=== PATIENT | female | born 1970 | race Caucasian/White ===

== ENCOUNTER → 2018-04-26 | Outpatient (CLI) | payer BC ==
[2018-04-26 17:26] LABS: BASOPHILS ABSOLUTE AUTO 0.05 K/mm3 (0.00-0.23); BASOPHILS PERCENT AUTO 0 % (0-2); EOSINOPHILS ABSOLUTE AUTO 0.23 K/mm3 (0.00-0.68); EOSINOPHILS PERCENT AUTO 2 % (0-6); Hematocrit 41.4 % (33.0-51.0); Hemoglobin 13.8 g/dL (11.5-16.0); IMMATURE GRAN ABSOLUTE AUTO 0.05 K/mm3 (0.00-0.10); IMMATURE GRAN PERCENT AUTO 0 % (0-1); LYMPHOCYTES ABSOLUTE AUTO 2.25 K/mm3 (0.84-5.20); LYMPHOCYTES PERCENT AUTO 17 % (21-46); MONOCYTES ABSOLUTE AUTO 1.06 K/mm3 (0.16-1.47); MONOCYTES PERCENT AUTO 8 % (4-13); Mean Corpuscular HGB 31.3 pg (26.0-34.0); Mean Corpuscular HGB Conc 33.3 g/dL (31.5-36.5); Mean Corpuscular Volume 94 fL (80-100); Mean Platelet Volume 10.1 fL (9.1-12.4); NEUTROPHILS ABSOLUTE AUTO 9.87 K/mm3 (1.96-9.15); NEUTROPHILS PERCENT AUTO 73 % (41-73); Platelet Count 411 K/mm3 (150-400); RDW Coefficient Variation 12.5 % (11.7-14.2); RDW Standard Deviation 43.5 fL (35.1-46.3); Red Blood Cell Count 4.41 M/mm3 (3.80-5.20); White Blood Cell Count 13.51 K/mm3 (4.00-11.30)
[2018-04-26 17:46] LABS: Alanine Aminotransfer (ALT/SGP 38 U/L (12-78); Albumin, Blood 3.6 g/dL (3.4-5.0); Albumin/Globulin Ratio 0.8 (0.8-1.8); Alk Phos 91 U/L (50-136); Anion Gap 8 mmol/L (6-16); Aspartate Aminotrans (AST/SGOT 25 U/L (12-37); Bilirubin, Total 0.6 mg/dL (0.1-1.0); Blood Urea Nitrogen 16 mg/dL (8-24); Bun/Creatinine Ratio 22.2 (12.0-20.0); CO2, Blood 30 mmol/L (21-32); Calcium, Blood 9.4 mg/dL (8.5-10.1); Chloride, Blood 99 mmol/L (98-108); Creatinine, Blood 0.72 mg/dL (0.40-1.00); Globulin, Blood 4.8 g/dL (2.2-4.0); Glomerular Filtration Rate >60 (60-); Glucose, Blood 107 mg/dL (70-99); Potassium, Blood 3.1 mmol/L (3.5-5.5); Sodium, Blood 137 mmol/L (136-145); Total Protein, Blood 8.4 g/dL (6.4-8.2); Uric Acid, Blood 7.4 mg/dL (2.6-6.0)
== END ==
LOC: LAB SHORT 16:55 → LAB 16:55
PROVIDERS: Family Medicine
DX: L53.9 Erythematous condition, unspecified (principal); R50.9 Fever, unspecified; R22.42 Localized swelling, mass and lump, left lower limb
CPT/HCPCS: 80053; 84550; 85025

== ENCOUNTER → 2018-09-19 | Outpatient (CLI) | payer BC | END | disposition home or self-care (01) | LOC: PLD 10:50 → LAB SHORT 10:50 | DX: D48.5 Neoplasm of uncertain behavior of skin (principal) | CPT/HCPCS: 88304 ==

== ENCOUNTER 2020-10-22 10:20 | Inpatient (IN) | payer BC ==
[~2020-10-22] VITALS: Ht 160 cm; Wt 84.1 kg
[2020-10-22] MEDS ORDERED: EUTHYROX50 MCG PO (10:35)
[2020-10-22] MEDS ORDERED: AMLO5 PO (10:35)
[2020-10-22] MEDS ORDERED: LOSA50 PO (10:36)
[2020-10-22 10:55] LABS: BASOPHILS ABSOLUTE AUTO 0.02 K/mm3 (0.00-0.23); BASOPHILS PERCENT AUTO 0 % (0-2); EOSINOPHILS PERCENT AUTO 0 % (0-6); Hematocrit 42.2 % (33.0-51.0); Hemoglobin 14.3 g/dL (11.5-16.0); IMMATURE GRAN PERCENT AUTO 1 % (0-1); LYMPHOCYTES PERCENT AUTO 12 % (21-46); MONOCYTES ABSOLUTE AUTO 1.02 K/mm3 (0.16-1.47); MONOCYTES PERCENT AUTO 6 % (4-13); Mean Corpuscular HGB 31.8 pg (26.0-34.0); Mean Corpuscular HGB Conc 33.9 g/dL (31.5-36.5); Mean Corpuscular Volume 94 fL (80-100); Mean Platelet Volume 10.2 fL (9.1-12.4); NEUTROPHILS ABSOLUTE AUTO 12.88 K/mm3 (1.96-9.15); NEUTROPHILS PERCENT AUTO 81 % (41-73); Platelet Count 378 K/mm3 (150-400); RDW Standard Deviation 44.8 fL (35.1-46.3); White Blood Cell Count 15.92 K/mm3 (4.00-11.30)
[2020-10-22 11:14] LABS: Alanine Aminotransfer (ALT/SGP 121 U/L (12-78); Albumin, Blood 3.4 g/dL (3.4-5.0); Albumin/Globulin Ratio 0.7 (0.8-1.8); Alk Phos 69 U/L (50-136); Anion Gap 9 mmol/L (6-16); Aspartate Aminotrans (AST/SGOT 85 U/L (12-37); Bilirubin, Total 0.4 mg/dL (0.1-1.0); Blood Urea Nitrogen 39 mg/dL (8-24); Bun/Creatinine Ratio 40.4 (12.0-20.0); CO2, Blood 21 mmol/L (21-32); Calcium, Blood 8.7 mg/dL (8.5-10.1); Chloride, Blood 108 mmol/L (98-108); Creatinine, Blood 0.97 mg/dL (0.40-1.00); Ferritin, Serum 594 ng/mL (8-252); Globulin, Blood 4.8 g/dL (2.2-4.0); Glomerular Filtration Rate >60 (60-); Glucose, Blood 100 mg/dL (70-99); Lactate Dehydrogenase (Ld),Bld 588 U/L (100-240); Potassium, Blood 3.8 mmol/L (3.5-5.5); Sodium, Blood 138 mmol/L (136-145); Total Protein, Blood 8.2 g/dL (6.4-8.2)
--- NOTE | 2020-10-22 16:55 | NUR ---
PT ARRIVED TO ROOM 313-1 VIA GURNEY, 15L NRB IN PLACE, PT STOOD AND TRANSFERRED TO BED, ORIENTED TO ROOM AND CALL SYSTEM. DENIES PAIN, REPORTS SOB, CALLED FOR CONTINUOUS BIOX MONITORING. CALL BLANCHARD IN REACH AND BED IN LOWEST POSTION
--- NOTE | 2020-10-22 17:11 | NUR ---
PER BIOX PT SATS ARE AT 76%, PT ENCOURAGED TO PRONE, SATS TOUCHING INTO LOW 80'S AND RETURNING TO 70'S. PER RESP THERAPIST, LAW, 10L NC PLACED WITH NRB FOR A TOTAL OF 25 LITERS, PT SATS 92%. WAITING FOR RESP THERAPIST TO COME TO ROOM AND ASSESS PT.
--- NOTE | 2020-10-22 19:15 | NUR ---
ASSUMED CARE RECEIVED REPORT FROM ELOY FIELDS. PT RESTING, IN NAD. AWAITING AIRVO. NO ACUTE NEEDS ASSESSED AT THIS TIME. O2 SATS >90%. WCTM.
[2020-10-23 05:45] LABS: BASOPHILS ABSOLUTE AUTO 0.02 K/mm3 (0.00-0.23); BASOPHILS PERCENT AUTO 0 % (0-2); EOSINOPHILS PERCENT AUTO 0 % (0-6); Hematocrit 42.9 % (33.0-51.0); Hemoglobin 14.4 g/dL (11.5-16.0); IMMATURE GRAN ABSOLUTE AUTO 0.12 K/mm3 (0.00-0.10); IMMATURE GRAN PERCENT AUTO 1 % (0-1); LYMPHOCYTES ABSOLUTE AUTO 1.74 K/mm3 (0.84-5.20); LYMPHOCYTES PERCENT AUTO 13 % (21-46); MONOCYTES ABSOLUTE AUTO 1.12 K/mm3 (0.16-1.47); MONOCYTES PERCENT AUTO 8 % (4-13); Mean Corpuscular HGB 31.8 pg (26.0-34.0); Mean Corpuscular HGB Conc 33.6 g/dL (31.5-36.5); Mean Corpuscular Volume 95 fL (80-100); Mean Platelet Volume 9.8 fL (9.1-12.4); NEUTROPHILS ABSOLUTE AUTO 10.44 K/mm3 (1.96-9.15); NEUTROPHILS PERCENT AUTO 78 % (41-73); Platelet Count 396 K/mm3 (150-400); RDW Coefficient Variation 12.9 % (11.7-14.2); RDW Standard Deviation 45.1 fL (35.1-46.3); Red Blood Cell Count 4.53 M/mm3 (3.80-5.20); White Blood Cell Count 13.44 K/mm3 (4.00-11.30)
[2020-10-23 06:14] LABS: Alanine Aminotransfer (ALT/SGP 103 U/L (12-78); Albumin, Blood 3.2 g/dL (3.4-5.0); Albumin/Globulin Ratio 0.6 (0.8-1.8); Alk Phos 74 U/L (50-136); Anion Gap 6 mmol/L (6-16); Aspartate Aminotrans (AST/SGOT 68 U/L (12-37); Bilirubin, Total 0.4 mg/dL (0.1-1.0); Blood Urea Nitrogen 35 mg/dL (8-24); Bun/Creatinine Ratio 44.1 (12.0-20.0); CO2, Blood 24 mmol/L (21-32); Calcium, Blood 8.7 mg/dL (8.5-10.1); Chloride, Blood 110 mmol/L (98-108); Creatinine, Blood 0.79 mg/dL (0.40-1.00); Glomerular Filtration Rate >60 (60-); Glucose, Blood 102 mg/dL (70-99); Potassium, Blood 4.1 mmol/L (3.5-5.5); Sodium, Blood 140 mmol/L (136-145); Total Protein, Blood 8.2 g/dL (6.4-8.2)
--- NOTE | 2020-10-23 07:00 | NUR ---
SHIFT SUMMARY PT RESTING, IN NAD. VS REVIEWED,WNL. NO ACUTE CONCERNS TO REPORT OVERNIGHT, O2 SATS >92% ON AIRVO, 55L/ 94% FIO2. DE-SATS TO MID 80'S WITH ACTIVITY BUT RECOVERS SOON AFTER. ENCOURAGED TO LIE ON SIDE OR PRONE, PT DEMONSTRATED UNDERSTANDING, TOLERATED WELL. DENIES PAIN. APPEARED TO SLEEP WELL T/O NIGHT. NO ACUTE NEEDS ASSESSED. CALL LIGHT, POSSESSIONS IN REACH, BED IN LOW AND LOCKED POSITION. REPORT GIVEN TO ELOY TORO.
[2020-10-23 10:50] LABS: PCO2 Arterial 28.3 mmHg (35-45); PO2 Arterial 46.5 mmHg (80-100); pH Blood Arterial 7.47 (7.35-7.45)
--- NOTE | 2020-10-23 15:17 | NUR ---
PCU TRANSFER THIS RN GAVE REPORT TO ELOY SPICER ON PCU. PT TRANSFERRED WITH 15 L O2 VIA NC AND NONREBREATHER MASK WITH SATS 82%. PT PUT BACK ON AIRVO IN PCU. PT TRANSFERRED TO PCU BY THIS RN AND HELPER. PT IS IN ROOM, SATS CURRENTLY 82% WITH AIRVO TRANSFER IN PROGRESS.
--- NOTE | 2020-10-23 16:37 | NUR ---
CARE ASSUMPTION/ARRIVAL TO PCU PATIENT ARRIVED TO PCU AT 1445 BY BED FROM MEDICAL FLOOR. PATIENT TRANSFERED BY A SLIDE SHEET TO THE PCU BED. VSS. PATIENT PLACED ON BIPAP 14/8 90% AND REPOSITIONED TO PRONE. PATIENT ORIENTATED TO ROOM. PATIENT A/O X4. PATIENT REPORTS NO PAIN, BUT STATES SHE IS CLAUSTROPHOBIC WITH THE BIPAP. THIS RN GOT AHOLD OF THE MD AND NOTIFED MD OF THIS. CALL LIGHT WITHIN REACH. WILL CONTINUE TO MONITOR AND PROVIDE CARE.
[2020-10-23 17:42] LABS: Source, Urine Catheter
[2020-10-23 17:55] LABS: Bilirubin, Urine Neg (Neg); Blood, Urine Neg (Neg); Color, Urine Yellow (P-Yellow); Glucose Qualitative, Urine Neg (Neg); Ketones, Urine Neg (Neg); Leukocyte Esterase, Urine 1+ (Neg); Nitrite, Urine Neg (Neg); Protein, Urine 2+ (Neg); Specific Gravity, Urine 1.015 (1.003-1.022); Urobilinogen, Urine NORM (Normal); pH, Urine 6.5 (5.0-8.0)
--- NOTE | 2020-10-23 18:04 | NUR ---
SHIFT SUMMARY PATIENT IS A/O X4. VSS. SPO2 >90% ON BIPAP 14/8 90% AND LAYING ON RIGHT SIDE. TELE SR 60S. MONIQUE CATH IN PLACE DRAINING WITH GRAVITY, CLEAR YELLOW. PATIENT, PER EMAR ORDER RECEIVED ATIVAN, THIS PROVIDED RELIEF OF ANXIETY. PATIENT DID NOT WANT TO EAT DINNER. NO ACUTE CHANGES. CALL LIGHT WITHIN REACH. WILL CONTINUE TO MONITOR AND PROVIDE CARE UNTIL HAND OFF.
[2020-10-23 18:05] LABS: Appearance, Urine Hazy (Clear)
[2020-10-23 18:08] LABS: Red Blood Cells, Urine 0-2 /hpf (0-2)
[2020-10-23 18:09] LABS: Bacteria Mod /hpf; Squamous Epithelial Cells Many /hpf (Few)
--- NOTE | 2020-10-24 05:58 | NUR ---
SHIFT SUMMARY ASSUMED CARE OF PT AT 1900. PT IS A/OX4. HEART SOUNDS REGULAR, LUNG SOUNDS HAVE CRACKLES T/O. PT REMAINED ON THE CPAP T/O THE NIGHT. PT REMAINED AT 90% FIO2 WITH SATURATIONS IN THE LOW 90%. PT DID NOT PRONE WELL BUT WOULD LAY ON HER SIDE. PT MONIQUE WAS DRAINING CLEAR YELLOW URINE. PT TOLERATED ORAL CARE BREAKS. CALL LIGHT IN REACH, BED IN LOWEST POSTION.
--- NOTE | 2020-10-24 09:45 | NUR ---
CARE ASSUMPTION PATIENT ALERT AND ORIENTATED X4. PATIENT VSS. TELE SR 70S. BIPAP 14/8 AT 90% SPO2 AT 90. PATIENT WAS PRONING TO INCREASE OXYGEN SATURATION BECAUSE PATIENT DROPPED INTO 80S. PATIENT PRONING AND INCREASED O2 TO 90-92%. PATIENT REPOSITIONED ON RIGHT SIDE. PATIENT LUNG SOUNDS HAS BILATERAL WHEEZES. PATIENT ORAL MEDS HELD DUE TO PATIENT O2 SATS DROPPING INTO LOW 80S. PATIENT RECEIVED IV MORNING MEDS. CALL LIGHT WITHIN REACH. WILL CONTINUE TO MONITOR AND PROVIDE CARE.
--- NOTE | 2020-10-24 12:00 | NUR ---
INITIAL ASSESSMENT PATIENT ARRIVED FROM PCU AT 1135. PATIENT INTUBATED AND ON SEDATION. PATIENT RESPONDING TO PAINFUL STIMULI. TEMP OF 100.9 DEGREES FAHRENHEIT. LUNGS DIMINISHED AND COARSE THROUGHOUT. PATIENT ON ACVC+ AT 14, TI 0.8, PEEP 14 AND 100% FIO2. ETT 8.0 AND 24 AT TEETH. SMALL AMOUNTS OF BLOODY SECRETIONS NOTED FROM ETT. PATIENT IN ST, HR 150S TO 160S. SBP IN THE 90S. OG PLACED; CLAMPED. MONIQUE DRAINING DARK YELLOW COLORED URINE. SKIN APPEARS WNL.
--- NOTE | 2020-10-24 12:49 | NUR ---
100 MG SUCCINYLCHOLINE GIVEN BY OSITO LYONS AT 1235.
[2020-10-24 13:32] LABS: BASOPHILS ABSOLUTE AUTO 0.05 K/mm3 (0.00-0.23); BASOPHILS PERCENT AUTO 0 % (0-2); EOSINOPHILS ABSOLUTE AUTO 0.03 K/mm3 (0.00-0.68); EOSINOPHILS PERCENT AUTO 0 % (0-6); IMMATURE GRAN PERCENT AUTO 2 % (0-1); LYMPHOCYTES ABSOLUTE AUTO 1.56 K/mm3 (0.84-5.20); LYMPHOCYTES PERCENT AUTO 8 % (21-46); MONOCYTES ABSOLUTE AUTO 1.41 K/mm3 (0.16-1.47); MONOCYTES PERCENT AUTO 7 % (4-13); Mean Corpuscular HGB Conc 33.3 g/dL (31.5-36.5); Mean Corpuscular Volume 96 fL (80-100); Mean Platelet Volume 10.3 fL (9.1-12.4); NEUTROPHILS PERCENT AUTO 84 % (41-73); Platelet Count 464 K/mm3 (150-400); RDW Standard Deviation 46.5 fL (35.1-46.3); Red Blood Cell Count 4.38 M/mm3 (3.80-5.20); White Blood Cell Count 20.35 K/mm3 (4.00-11.30)
[2020-10-24 13:50] LABS: Albumin/Globulin Ratio 0.7 (0.8-1.8); Bilirubin, Total 0.8 mg/dL (0.1-1.0); Bun/Creatinine Ratio 36.6 (12.0-20.0); Calcium, Blood 8.1 mg/dL (8.5-10.1); Creatinine, Blood 0.98 mg/dL (0.40-1.00); Globulin, Blood 4.3 g/dL (2.2-4.0); Potassium, Blood 4.2 mmol/L (3.5-5.5); Total Protein, Blood 7.3 g/dL (6.4-8.2)
[2020-10-24 15:17] LABS: PCO2 Arterial 34.3 mmHg (35-45); PO2 Arterial 86.2 mmHg (80-100); pH Blood Arterial 7.34 (7.35-7.45)
--- NOTE | 2020-10-24 15:50 | NUR ---
1131: PATIENT RECEIVED 100 MG SUCCINYL CHOLINE. PATIENT INTUBATED AT 1133. PATIENT RECEIVED 50 MCG PROPOFOL AT 1138 EN ROUTE FROM PCU TO ICU 07. PATIENT RECEIVED ANOTHER 50 MCG OF PROPOFOL AT 1142 ONCE IN ICU.
--- NOTE | 2020-10-24 16:19 | NUR ---
PATIENT'S GOLD BRACELET SENT HOME WITH PATIENT'S , KIM.
--- NOTE | 2020-10-24 18:50 | NUR ---
SHIFT SUMMARY PATIENT ARRIVED TO UNIT AROUND 1130. PATIENT INTUBATED RIGHT BEFORE COMING TO ICU. PATIENT REMAINS INTUBATED AND SEDATED. VENT SETTINGS HAVE BEEN ABLE TO BE DECREASED TO AC 14, TV 350, PEEP 10 AND 60% FIO2. LUNGS DIM AND COARSE UPON ARRIVAL. LUNGS NOW MORE CLEAR TO AUSCULTATION. ETT 8.0, 24 AT THE TEETH. SMALL AMOUNTS OF BLOODY SECRETIONS NOTED FROM ETT. CHEST TUBE PLACED TO R CHEST WALL TO WALL SUCTION AT -20 CM H20. NO CREPITUS NOTED. BUBBLING AND FLUCTUATING NOTED. OCCASIONAL AIR LEAK NOTED. PATIENT REMAINED SR TO ST, HR 70S TO 160S. SBP 90S TO 160S. OG REMAINS CLAMPED. NO BM THIS SHIFT. PATIENT REMAINED NPO. MONIQUE DRAINED ADEQUATE AMOUNT OF DARK YELLOW COLORED URINE. PATIENT REPOSITIONED Q2H. PRECEDEX AT 1.4 MCG/ KG/ HOUR, PROPOFOL AT 60 MCG/ KG/ MINUTE, LR AT 125 MLS/ HOUR. REPORT WILL BE GIVEN TO ONCOMING WOOL CARDER NURSE SHORTLY.
--- NOTE | 2020-10-24 22:01 | NUR ---
UPDATE: PT'S MOTHER, SANNA, UPDATED ON PT'S IMPROVING VENT REQUIREMENTS AFTER BEING TRANSFERRED TO ICU. PEEP NOW 10 & FiO2 55%. PT TOLERATING WELL @ 95%, TV 360s. FAMILY SEEMED TO BE IN GOOD SPIRITS & EXPRESSED THEIR GRATITUDE TOWARDS STAFF. ENCOURAGED TO CALL FOR ANY QUESTIONS OR CONCERNS.
[2020-10-25 03:40] LABS: Hematocrit 41.1 % (33.0-51.0); Mean Corpuscular HGB 31.7 pg (26.0-34.0); Mean Corpuscular HGB Conc 34.1 g/dL (31.5-36.5); Mean Corpuscular Volume 93 fL (80-100); Platelet Count 441 K/mm3 (150-400); RDW Coefficient Variation 12.7 % (11.7-14.2); RDW Standard Deviation 43.8 fL (35.1-46.3); Red Blood Cell Count 4.42 M/mm3 (3.80-5.20); White Blood Cell Count 21.62 K/mm3 (4.00-11.30)
[2020-10-25 04:00] LABS: Alanine Aminotransfer (ALT/SGP 71 U/L (12-78); Albumin, Blood 2.7 g/dL (3.4-5.0); Albumin/Globulin Ratio 0.6 (0.8-1.8); Alk Phos 91 U/L (50-136); Anion Gap 6 mmol/L (6-16); Aspartate Aminotrans (AST/SGOT 35 U/L (12-37); Bilirubin, Total 0.7 mg/dL (0.1-1.0); Blood Urea Nitrogen 23 mg/dL (8-24); Bun/Creatinine Ratio 33.6 (12.0-20.0); CO2, Blood 21 mmol/L (21-32); Chloride, Blood 111 mmol/L (98-108); Creatinine, Blood 0.69 mg/dL (0.40-1.00); Globulin, Blood 4.6 g/dL (2.2-4.0); Glomerular Filtration Rate >60 (60-); Glucose, Blood 228 mg/dL (70-99); Sodium, Blood 138 mmol/L (136-145); Total Protein, Blood 7.3 g/dL (6.4-8.2)
[2020-10-25 04:07] LABS: BAND PERCENT MAN 1 % (0-8); BASOPHILS PERCENT MAN 0 % (0-2); EOSINOPHILS PERCENT MAN 0 % (0-6); LYMPHOCYTES ABSOLUTE MAN 0.64 K/mm3 (0.84-5.20); LYMPHOCYTES PERCENT MAN 3 % (21-46); METAMYELOCYTE ABSOLUTE MAN 0.64 K/mm3 (0.00-0.00); METAMYELOCYTE PERCENT MAN 3 % (0-0); MONOCYTES ABSOLUTE MAN 0.64 K/mm3 (0.16-1.47); MONOCYTES PERCENT MAN 3 % (4-13); MYELOCYTE ABSOLUTE MAN 0.21 K/mm3 (0.00-0.00); MYELOCYTE PERCENT MAN 1 % (0-0); NEUTROPHILS ABSOLUTE MAN 19.45 K/mm3 (1.96-9.15); SEG NEUTROPHILS PERCENT MAN 89 % (41-73); TOTAL CELLS COUNTED 100
--- NOTE | 2020-10-25 06:55 | NUR ---
SHIFT SUMMARY: PT RESTED WELL T/O THE NIGHT. VENT: AC VC 14/350, 10/50%. GTTs: PRECEDEX 1.0mcg/kg/hr, PROPOFOL 30mcg/kg/min. PT GIVEN VERY SHORT SEDATION VACATION, APPROX 8min, DURING WHICH PT BEGAN TO COUGH AGAINST ETT & SATS DEC TO 70s & PT TOOK SEVERAL MINS TO RETURN TO THE 90s. PT HAD DIFFICULTY MAINTAINING SATS >90% W/ POSITION CHANGES. ELEVATING THE TRUNK W/ FLANKED PILLOWS APPEAR TO WORK BEST FOR HER WORK OF BREATHING & SATS. NO OTHER ACUTE CHANGES. FAMILY UPDATED ON PT IMPROVEMENTS & PLAN OF CARE. WILL CONTINUE TO MONITOR UNTIL REPORT OFF TO ONCOMING RN.
--- NOTE | 2020-10-25 08:30 | NUR ---
INITIAL ASSESSMENT PATIENT INTUBATED AND SEDATED. PATIENT DOES RESPOND TO PAINFUL STIMULI. PATIENT AFEBRILE. NO SIGNS OF PAIN NOTED. PATIENT ON AC 14, TV 350, PEEP 10 AND 50% FIO2. LUNGS DIMINISHED THROUGHOUT. CHEST TUBE TO R ANTERIOR CHEST WALL. CHEST TUBE TO WALL SUCTION. BUBBLING AND FLUCTUATING NOTED. FREQUENT, BUT NOT CONSTANT, AIR LEAK NOTED. NO CREPITUS NOTED. PATIENT IN SR, HR 60S TO 80S. SBP 120S TO 150S. PATIENT NPO. OG IN PLACE; CLAMPED. MONIQUE DRAINING DARK YELLOW URINE. SKIN APPEARS WNL. PATIENT BEING REPOSITIONED Q2H. BED LOW. WILL CONTINUE TO MONITOR PATIENT FREQUENTLY THROUGHOUT SHIFT.
--- NOTE | 2020-10-25 12:30 | NUR ---
PATIENT AFEBRILE. HR 70S TO 80S. SBP 120S TO 140S. RR 20S TO 40S. PATIENT ON AC 14, TV 320, PEEP OF 8 AND 50% FIO2. PROPOFOL AT 60 MCG/ KG/ HOUR. DR. AARON STATED NOT TO PERFORM SEDATION VACATION THIS SHIFT. WILL CONTINUE TO MONITOR.
--- NOTE | 2020-10-25 13:29 | NUR ---
DR. STEIN INFORMED OF INCREASING WBCS. INFORMED THAT URINE CAME BACK POSITIVE FOR ENTEROCOCCUS. NO ORDERS RECEIVED.
--- NOTE | 2020-10-25 16:00 | NUR ---
PATIENT AFEBRILE. HR IN THE 70S. SBP IN THE 150S. RR IN THE 30S. VENTILATOR SETTINGS REMAIN THE SAME. PATIENT STARTED ON PIVOT 1.5 AT GOAL RATE OF 25 MLS/ HOUR. NO OTHER CHANGES TO NOTE ON AT THIS TIME.
--- NOTE | 2020-10-25 16:54 | NUR ---
1550: DR. AARON INFORMED THAT PATIENT SATTING IN THE LOW 80S. INFORMED THAT PATIENT HAD CUFF LEAK AND THAT HAS BEEN CORRECTED BY PRIMARY NURSE AND RT, SHAMIKA. INFORMED THAT PATIENT PLACED ON 100% FIO2 AND SATS REMAIN BELOW 90. STAT CHEST XR PERFORMED PER DR. AARON. 1607: DR. STEIN CALLED AND INFORMED OF CHEST XR. STATED HE WOULD BE IN TO UNIT IN 20 MINUTES. 1630: DR. STEIN HERE. CHEST TUBE ATTACHED BACK TO WALL SUCTION FROM WATER SEAL. PATIENT SATTING IN 90S ON FIO2 OF 60%.
--- NOTE | 2020-10-25 18:53 | NUR ---
SHIFT SUMMARY PATIENT REMAINED INTUBATED AND SEDATED. PATIENT REMAINS RESPONDING TO PAIN. PATIENT COUGHING AND DESATTING INTO 80S WITH REPOSITIONING. PATIENT HAS REMAINED AFEBRILE. NO SIGNS OF PAIN NOTED THIS SHIFT. LUNGS REMAINED DIMINISHED THROUGHOUT. VENT SETTINGS NOW AC 14, TV 320, PEEP 8 AND 60% FIO2. DR. STEIN PLACED THORA VENT TO WATER SEAL FROM WALL SUCTION THIS SHIFT. PATIENT TOLERATED FOR SOME TIME BUT THEN DESATTED TO THE LOW 80S. CUFF LEAK FIXED BUT SATS REMAINED IN 80S. CHEST XR OBTAINED, PATIENT INCREASED TO 100% FIO2 AND DR. STEIN ENDED UP PLACING CHEST TUBE BACK TO WALL SUCTION. PATIENT SATS INCREASED BACK INTO THE 90S AND PATIENT ABLE TO BE DECREASED BACK DOWN TO 60% FIO2. PATIENT REMAINED IN SR, HR 60S TO 90S. SBP 1-TEENS TO 160S. PIVOT TF STARTED AT GOAL RATE OF 25 MLS/ HOUR THIS SHIFT. REGISTRY NP CONSULT ORDERED. NO BM THIS SHIFT. MONIQUE DRAINED 675 MLS OF DARK YELLOW COLORED URINE. PATIENT REPOSITIONED Q2H. PRECEDEX AT 1.0 MCG/ KG/ HOUR, PROPOFOL AT 60 MCG/ KG/ MINUTE AND LR AT 125 MLS/ HOUR. LSS INSULIN STARTED THIS SHIFT. BLOOD SUGARS 178 TO 249. REPORT WILL BE GIVEN TO ASSUMING AUTOMOBILE RENTAL REPRESENTATIVE NURSE SHORTLY.
--- NOTE | 2020-10-25 20:00 | NUR ---
ASSUMING PT CARE: PT INTUBATED & SEDATED. VENT: AC VC 14/320, 8/50%. GTTs: PRECEDEX 1.0mcg/kg/hr, PROPROFOL 60mcg/kg/min. BITES ETT, +GAG, +COUGH, +SWALLOW W/ ORAL CARE. UNABLE TO FOLLOW COMMANDS. SPO2>92%. URISEAL TO R UPPER CHEST, +BUBBLES IN WATER SEAL CHAMBER, +150mmHg SUCTION. NO DRAINAGE NOTED IN CHEST TUBE. SEE SHIFT ASSESSMENT FOR FULL PT ASSESSMENT. WILL CONTINUE TO MONITOR & REPORT APPROPRIATE.
--- NOTE | 2020-10-25 23:00 | NUR ---
UPDATE: FAMILY CALL PT'S MOTHER, SANNA, CALLS & REQUESTS UPDATE. UPDATED ON PT'S INC O2 REQUIREMENTS ON THE VENT, NOW 80% FiO2. MOTHER IS VERY INQUISITIVE, ASKING WHAT EXACTLY IS ON HER eMAR & WHAT "PROTOCOL" WE ARE USING TO TREAT HER COVID PNEUMONIA & HOW WE ARE "MONITORING IT's PROGRESS". SEVERAL MINS SPENT EDUCATING FAMILY ON TYPICAL PROCESSS IN TREATING COVID PNEUMONIA, BUT FAMILY ENCOURAGED TO ADDRESS THESE QUESTIONS W/ MD IN THE AM. FAMILY ALSO REQUESTS SHE BE SENT THE LIST OF MEDS SHE IS RECEIVING SO SHE CAN COMPARE THEM TO "RESEARCH" SHE IS FOLLOWING. SHE ADDS THAT THE PT & HER RECEIVED A COURSE OF IVERMECTIN WHEN THEY WERE FIRST DX'd W/ COVID & REQUESTS SHE RECEIVE A DRUG SHE HAS READ ABOUT. AGAIN, ENCOURAGED FAMILY TO ADDRESS THESE CONCERNS W/ PROVIDER. SHE SEEMED VERY RECEPTIVE BUT VERY ANXIOUS ABOUT THE PT RECEIVING THE PROPER COURSE OF Tx.
--- NOTE | 2020-10-26 01:30 | NUR ---
UPDATE: WORSENING HYPOXIA & LOW TIDAL VOLUMES. SPO2 CONTINUES TO DECLINE, NOW LOW 80s. RR 40s. TV 220-180. FiO2 INC TO 90%, PT MEDICATED W/ PRN ATIVAN, & SAT IN HIGH FOWLERS W/ NO RESOLUTION. RT CALLED TO BEDSIDE TO ASSESS. AGRICULTURAL PRODUCE WASHER TUBE APPEARED TO BE PINCHED & CUFF LEAKING, BOTH RESOLVED. CHEST TUBE NOW DRAINING HOLMAN/RED THICK SECRETIONS. SATS INC TO 93% & RR 30s, TV RETUNED TO 320. WILL CONTINUE TO MONITOR CLOSELY FOR ANY CHANGES & REPORT APPROPRIATE.
[2020-10-26 04:13] LABS: Hematocrit 41.5 % (33.0-51.0); Hemoglobin 13.9 g/dL (11.5-16.0); Mean Corpuscular HGB 31.7 pg (26.0-34.0); Mean Corpuscular HGB Conc 33.5 g/dL (31.5-36.5); Mean Corpuscular Volume 95 fL (80-100); Mean Platelet Volume 10.4 fL (9.1-12.4); Platelet Count 465 K/mm3 (150-400); RDW Coefficient Variation 12.8 % (11.7-14.2); RDW Standard Deviation 44.6 fL (35.1-46.3); Red Blood Cell Count 4.38 M/mm3 (3.80-5.20); White Blood Cell Count 22.76 K/mm3 (4.00-11.30)
[2020-10-26 04:37] LABS: Albumin, Blood 2.3 g/dL (3.4-5.0); Anion Gap 9 mmol/L (6-16); Blood Urea Nitrogen 19 mg/dL (8-24); Bun/Creatinine Ratio 33.5 (12.0-20.0); CO2, Blood 20 mmol/L (21-32); Calcium, Blood 7.2 mg/dL (8.5-10.1); Chloride, Blood 111 mmol/L (98-108); Creatinine, Blood 0.57 mg/dL (0.40-1.00); Glomerular Filtration Rate >60 (60-); Glucose, Blood 300 mg/dL (70-99); Phosphorus, Blood 2.4 mg/dL (2.5-4.9); Potassium, Blood 3.4 mmol/L (3.5-5.5); Sodium, Blood 140 mmol/L (136-145)
[2020-10-26 06:03] LABS: BAND PERCENT MAN 13 % (0-8); BASOPHILS PERCENT MAN 0 % (0-2); EOSINOPHILS PERCENT MAN 0 % (0-6); LYMPHOCYTES ABSOLUTE MAN 1.82 K/mm3 (0.84-5.20); LYMPHOCYTES PERCENT MAN 8 % (21-46); MONOCYTES ABSOLUTE MAN 1.13 K/mm3 (0.16-1.47); MONOCYTES PERCENT MAN 5 % (4-13); MYELOCYTE ABSOLUTE MAN 0.22 K/mm3 (0.00-0.00); MYELOCYTE PERCENT MAN 1 % (0-0); NEUTROPHILS ABSOLUTE MAN 19.57 K/mm3 (1.96-9.15); SEG NEUTROPHILS PERCENT MAN 73 % (41-73); TOTAL CELLS COUNTED 100
--- NOTE | 2020-10-26 06:54 | NUR ---
SHIFT SUMMARY: PT REMAINS INTUBATED & SEDATED. VENT: AC VC 14/320, 8/90%. GTTs: PRECEDEX 1.7mcg/kg/hr, PROPOFOL 60mcg/kg/min. PT HAS BEEN DIFFICULT TO SEDATED & MAINTAIN SATS >90% T/O THE SHIFT. SEE PREVIOUS NOTATION FOR PT PROGRESSION. PT IS MARKEDLY INTOLERANT OF POSITION CHANGES WHERE HER TRUNK IS NOT ELEVATED ON PILLOWS, SATS DEC TO THE LOW 80s, TV DEC, & RR INC TO THE 40s. IN HIGH FOWLERS W/ TRUNK ELEVATED, FiO2 WAS ABLE TO BE TITRATED DOWN FROM 100% TO 90% W/ SPO2 MAINTAINING >90%. ETT CUFF CONTINUES TO LEAK, RT & PROVIDER AWARE. NO BM THIS SHIFT. 900 URINE OUTPUT. WILL CONTINUE TO MONITOR UNTIL REPORT OFF TO ONCOMING RN.
--- NOTE | 2020-10-26 11:38 | NUR ---
ASSUMED CARE OF PT, REPORT RCV'D FROM ELOY SANTIAGO. PT INTUBATED AND SEDATED. VENT SETTINGS 14/320/8/90%. PROPOFOL @ 70 MCG/KG/MIN, PRECEDEX @ 1.4 MCG/KG/HR, FENTANYL GTT STARTED 25 MCG/HR. PT HAS RIGHT UPPER CHEST TUBE, TO SUCTION AT START OF SHIFT, DR. VELAZCO CHANGED TO WATERSEAL AT THIS TIME.
--- NOTE | 2020-10-26 15:44 | NUR ---
LEVOPHED BPS MAINTAINED SOFT WITH MAP [address] VELAZCO. ORDER FOR PICC AND LEVOPHED. ORDER OK TO START PERIPHERAL LEVOPHED. LEVO INITIATED IN LEFT AC, GOOD BLOOD RETURN, BP CUFF DISTAL TO IV. PICC BEING PLACED, WILL PLACE ON PICC ONCE COMPLETED.
--- NOTE | 2020-10-26 18:48 | NUR ---
SHIFT SUMMARY PT INTUBATED, SEDATED AND PARALYZED. VENT SETTINGS 14/320/10/80%. NIMBEX @ 2MCG/KG/MIN 2-3/4 TOF, PROPOFOL @ 40 MCG/KG/MIN, FENTANYL GTT 100 MCG/HR. CHEST TUBE REMAINS TO SUCTION. PT'S MOTHER UPDATED BY NURSE AND BY DR. VELAZCO.
[2020-10-26 21:11] LABS: Base Excess Venous -3.9 mmol/L; Bicarbonate Venous 19.7 mmol/L (24.0-30.0); PCO2 Venous 68.9 mmHg (38-42); pH Blood Venous 7.16 (7.34-7.37)
--- NOTE | 2020-10-26 21:15 | NUR ---
UPDATE: CRITICAL pH & VENT CHANGES RT CONCERNED W/ PT'S MINUTE VENTILATION. DISCUSSED W/ VELAZCO & ORDERS PLACED FOR STAT VBG. RESULTED W/ CRITICAL pH OF 7.16. VELAZCO UPDATED. ORDERS GIVEN TO INC RESPIRATORY RATE FROM 14 to 18. RT INFORMED & TO CHANGE SETTINGS SHORTLY.
--- NOTE | 2020-10-26 22:15 | NUR ---
UPDATE: FAMILY PHONE CALL. PT's MOTHER, SANNA, CALLS FOR AN UPDATE ON PT STATUS. FAMILY UPDATED ON VENT CHANGES & NEW GTTs INCLUDING PARALYTICS & PRESSORS. FAMILY WAS VERY INQUISITIVE REGARDING ECMO & WHETHER PT SHOULD BE TRANSFERRED TO A HOSPITAL THAT OFFERS ECMO SO THE PT WILL BE ABLE TO RECEIVE ECMO SOON SHE NEEDS IT. FAMILY INFORMED OF TRANSFER PROCESS & THAT PT IS NOT NEEDING ECMO @ THIS TIME PER [facility] & THEREFOR IT WOULD NOT BE A TRANSFER D/T HIGHER LEVEL OF CARE & THIS WOULD COMPLICATE INSURANCE COVERAGE. ATTEMPTED TO CONSOLE FAMILY THAT PT IS RECEIVING THE SAME Tx SHE WOULD ELSEWHERE & IF HER NEEDS CHANGED, WE WOULD INFORM THEM IMMEDIATELY. FURTHER QUESTIONS DEFERRED TO [facility] IN THE AM FAMILY HAD MANY MORE QUESTIONS.
[2020-10-27 03:44] LABS: BASOPHILS ABSOLUTE AUTO 0.15 K/mm3 (0.00-0.23); BASOPHILS PERCENT AUTO 1 % (0-2); EOSINOPHILS ABSOLUTE AUTO 0.01 K/mm3 (0.00-0.68); EOSINOPHILS PERCENT AUTO 0 % (0-6); Hematocrit 42.6 % (33.0-51.0); IMMATURE GRAN ABSOLUTE AUTO 2.16 K/mm3 (0.00-0.10); IMMATURE GRAN PERCENT AUTO 9 % (0-1); LYMPHOCYTES ABSOLUTE AUTO 0.85 K/mm3 (0.84-5.20); LYMPHOCYTES PERCENT AUTO 4 % (21-46); MONOCYTES ABSOLUTE AUTO 1.09 K/mm3 (0.16-1.47); MONOCYTES PERCENT AUTO 5 % (4-13); Mean Corpuscular HGB 31.9 pg (26.0-34.0); Mean Corpuscular HGB Conc 32.9 g/dL (31.5-36.5); Mean Corpuscular Volume 97 fL (80-100); Mean Platelet Volume 10.4 fL (9.1-12.4); NEUTROPHILS ABSOLUTE AUTO 19.36 K/mm3 (1.96-9.15); NEUTROPHILS PERCENT AUTO 82 % (41-73); Platelet Count 466 K/mm3 (150-400); RDW Coefficient Variation 13.2 % (11.7-14.2); RDW Standard Deviation 47.4 fL (35.1-46.3); Red Blood Cell Count 4.39 M/mm3 (3.80-5.20); White Blood Cell Count 23.62 K/mm3 (4.00-11.30)
[2020-10-27 04:03] LABS: Albumin, Blood 2.2 g/dL (3.4-5.0); Anion Gap 6 mmol/L (6-16); Blood Urea Nitrogen 17 mg/dL (8-24); Bun/Creatinine Ratio 32.1 (12.0-20.0); CO2, Blood 26 mmol/L (21-32); Chloride, Blood 111 mmol/L (98-108); Creatinine, Blood 0.53 mg/dL (0.40-1.00); Glomerular Filtration Rate >60 (60-); Glucose, Blood 276 mg/dL (70-99); Phosphorus, Blood 2.8 mg/dL (2.5-4.9); Potassium, Blood 3.8 mmol/L (3.5-5.5); Sodium, Blood 143 mmol/L (136-145)
[2020-10-27 04:08] LABS: BAND PERCENT MAN 3 % (0-8); BASOPHILS PERCENT MAN 0 % (0-2); EOSINOPHILS PERCENT MAN 0 % (0-6); LYMPHOCYTES ABSOLUTE MAN 0.47 K/mm3 (0.84-5.20); LYMPHOCYTES PERCENT MAN 2 % (21-46); METAMYELOCYTE ABSOLUTE MAN 0.94 K/mm3 (0.00-0.00); METAMYELOCYTE PERCENT MAN 4 % (0-0); MONOCYTES PERCENT MAN 0 % (4-13); MYELOCYTE ABSOLUTE MAN 0.23 K/mm3 (0.00-0.00); MYELOCYTE PERCENT MAN 1 % (0-0); NEUTROPHILS ABSOLUTE MAN 21.96 K/mm3 (1.96-9.15); SEG NEUTROPHILS PERCENT MAN 90 % (41-73); TOTAL CELLS COUNTED 100
--- NOTE | 2020-10-27 06:46 | NUR ---
SHIFT SUMMARY: PT REMAINS INTUBATED, SEDATED, & PARALYZED. VENT: AC VC 18/330, 10/60%. GTTs: FENTANYL 100mcg/hr, PRECEDEX 1.0mcg/kg/hr, PROPOFOL 40mcg/kg/min, NIMBEX 1mcg/kg/min. BIS 32-45. ToF 1/4. CHEST TUBE REMAINS TO WALL SUCTION, NO OUTPUT THIS SHIFT. LS DIMINISHED BUT CLEAR. 1,100 DARK YELLOW URINE OUTPUT THIS SHIFT. PT DID VERY WELL T/O THE NIGHT. FiO2 DEC TO 50% FOR MOST OF THE NIGHT. NO LONGER REQUIRING PRESSORS. WILL CONTINUE TO MONITOR UNTIL REPORT OFF TO ONCOMING RN.
--- NOTE | 2020-10-27 07:30 | NUR ---
ASSUMED CARE REPORT FROM JACK LYONS AT 0700. PT INTUBATED, SEDATED, PARALYZED. VENT SETTINGS AC 14/320/10/65%. LUNGS CLEAR THROUGHOUT. SCANT SECRETIONS THROUGH ETT. URESIL TO RIGHT CHEST WALL, TO SUCTION. NO CREPITIS PALPATED. SCANT SEROUS DRAINAGE IN TUBE. PROPOFOL AND FENTANYL GTT FOR PAIN AND SEDATION. BIS 30'S. NIMBEX GTT, TO4 0/4, COMPLIANT c VENT, WILL TITRATE DOWN. NO COOUGH/GAG/SWALLOW REFLEX. ABD ROUND, SOFT, NON TENDER. BT X 4. TUBE FEEDS AT GOAL, 20 ML/HR, 50 ML RESIDUALS THIS AM. MONIQUE PATENT, DRAINING CLEAR YELLOW URINE TO GRAVITY. PICC TO E, DRESSING C/D/I. BP STABLE. NSR, RATE 60'S. WILL CONTINUE TO MONITOR.
--- NOTE | 2020-10-27 10:52 | NUR ---
REASSESSMENT/DR VELAZCO ROUNDS PLAN FOR PARALYTIC VACATION THIS SHIFT. WILL LEAVE CHEST TUBE TO SUCTION. DIURESE THIS SHIFT. VENT SETTINGS AC 14/320/10/50%.
--- NOTE | 2020-10-27 18:01 | NUR ---
SHIFT SUMMARY PT REMAINS INTUBATED AND SEDATED. VENT SETTINGS AC 14/320/10/60%. LUNGS CLEAR. CHEST TUBE REMAINS IN PLACE TO RIGHT CHEST WALL, TO SUCTION. 17 ML SEROUS FLUID OUT. NIMBEX D'C/D THIS SHIFT, PT TOLERATING VENT WELL. PROPOFOL, PRECEDEX AND FENTANYL CONTINUE. PT FOLLOWS SIMPLE COMMANDS. NODS HEAD TO QUESTIONS. TUBE FEEDS AT GOAL. MONIQUE PATENT, DRAINING TO GRAVITY. DIRUESED THIS SHIFT. BP STABLE. WILL CONTINUE TO MONITOR UNTIL REPORT TO ONCOMING NURSE.
--- NOTE | 2020-10-27 19:15 | NUR ---
ASSUMPTION OF CARE PT REMAINS INTUBATED WITH VENT SETTINGS 14/330/10/60%. PT WAKENS TO VERBAL STIMULI. SLOW TO RESPOND BUT OPENS EYES TO NAME, NODS HEAD YES/NO TO QUESTIONS. PT SQUEEZES BILAT HANDS WITH MINIMAL STRENGTH, WIGGLES TOES. PT DENIES PAIN OR DISCOMFORT. PT RECEIVING PROPOFOL 30MCG/KG/MIN, PRECEDEX 0.7MCG/KG/HR, AND FENTANYL 100MCG/HR. LEVOPHED AND NIMBEX REMAIN ON STANDBY. CHEST TUBE REMAINS IN R ANTERIOR UPPER CHEST. CONNECTED TO SUCTION WITH SEROSANGUANOUS DRAINAGE. DRESSING INTACT AND SECURE. TF INFUSING VIA OGT AT GOAL RATE. MONIQUE IN PLACE AND DRAINING PALE YELLOW URINE. SEE SHIFT ASSESSMENT.
[2020-10-28 03:34] LABS: BASOPHILS ABSOLUTE AUTO 0.09 K/mm3 (0.00-0.23); BASOPHILS PERCENT AUTO 1 % (0-2); EOSINOPHILS ABSOLUTE AUTO 0.09 K/mm3 (0.00-0.68); EOSINOPHILS PERCENT AUTO 1 % (0-6); Hematocrit 39.1 % (33.0-51.0); Hemoglobin 13.2 g/dL (11.5-16.0); IMMATURE GRAN ABSOLUTE AUTO 1.53 K/mm3 (0.00-0.10); IMMATURE GRAN PERCENT AUTO 8 % (0-1); LYMPHOCYTES ABSOLUTE AUTO 2.06 K/mm3 (0.84-5.20); LYMPHOCYTES PERCENT AUTO 11 % (21-46); MONOCYTES ABSOLUTE AUTO 0.64 K/mm3 (0.16-1.47); MONOCYTES PERCENT AUTO 3 % (4-13); Mean Corpuscular HGB 31.9 pg (26.0-34.0); Mean Corpuscular HGB Conc 33.8 g/dL (31.5-36.5); Mean Corpuscular Volume 94 fL (80-100); Mean Platelet Volume 10.2 fL (9.1-12.4); NEUTROPHILS ABSOLUTE AUTO 14.36 K/mm3 (1.96-9.15); NEUTROPHILS PERCENT AUTO 76 % (41-73); Platelet Count 479 K/mm3 (150-400); RDW Coefficient Variation 13.2 % (11.7-14.2); RDW Standard Deviation 45.7 fL (35.1-46.3); Red Blood Cell Count 4.14 M/mm3 (3.80-5.20); White Blood Cell Count 18.77 K/mm3 (4.00-11.30)
[2020-10-28 03:58] LABS: Albumin, Blood 2.1 g/dL (3.4-5.0); Anion Gap 4 mmol/L (6-16); Blood Urea Nitrogen 25 mg/dL (8-24); Bun/Creatinine Ratio 39.6 (12.0-20.0); CO2, Blood 35 mmol/L (21-32); Calcium, Blood 6.9 mg/dL (8.5-10.1); Chloride, Blood 106 mmol/L (98-108); Creatinine, Blood 0.63 mg/dL (0.40-1.00); Glomerular Filtration Rate >60 (60-); Glucose, Blood 144 mg/dL (70-99); Potassium, Blood 3.7 mmol/L (3.5-5.5); Sodium, Blood 145 mmol/L (136-145)
[2020-10-28 04:29] LABS: Phosphorus, Blood 0.8 mg/dL (2.5-4.9)
[2020-10-28 05:33] LABS: BAND PERCENT MAN 3 % (0-8); BASOPHILS PERCENT MAN 0 % (0-2); EOSINOPHILS PERCENT MAN 0 % (0-6); LYMPHOCYTES ABSOLUTE MAN 1.68 K/mm3 (0.84-5.20); LYMPHOCYTES PERCENT MAN 9 % (21-46); METAMYELOCYTE ABSOLUTE MAN 0.56 K/mm3 (0.00-0.00); METAMYELOCYTE PERCENT MAN 3 % (0-0); MONOCYTES ABSOLUTE MAN 0.56 K/mm3 (0.16-1.47); MONOCYTES PERCENT MAN 3 % (4-13); NEUTROPHILS ABSOLUTE MAN 15.95 K/mm3 (1.96-9.15); SEG NEUTROPHILS PERCENT MAN 82 % (41-73); TOTAL CELLS COUNTED 100
--- NOTE | 2020-10-28 05:44 | NUR ---
SHIFT SUMMARY PT REMAINS INTUBATED. VENT SETTINGS 14/330/10/70%. PT RECEIVING PROPOFOL 40MCG/KG/MIN, AND PRECEDEX 0.7MCG/KG/HR, AND FENTANYL 100MCG/HR. PT WAKES TO VERBAL STIMULI. CONTINUES TO RESPOND SLOWLY, NODS HEAD YES/NO, SQUEEZES HANDS AND WIGGLES TOES. TUBE FEEDING INFUSING AT GOAL RATE VIA OGT. CHEST TUBE REMAINS IN PLACE ON R ANTERIOR CHEST CONNECTED TO SUCTION. DRESSING INTACT. CRITICAL PHOSPHORUS 0.8. DR WAYNE NOTIFIED, ORDER FOR SODIUM PHOSPHATE PLACED. TMAX 99.5 THIS SHIFT. MONIQUE REMAINS IN PLACE. TOTAL SHIFT OUTPUT OF 2650ML. WILL REPORT TO ONCOMING RN.
--- NOTE | 2020-10-28 08:40 | NUR ---
ASSESSMENT- PT SEDATED WITH PROPOFOL AT 40 MCG/KG/MIN, PRECEDEX AT 0.7 MCG/KG/HR AND FENTANYL AT 100 MCG/HR. NO RESPONSE TO VERBAL STIMULUS, DOES ATTEMPT TO OPEN EYES, MOVES ARMS WEAKLY. ORALLY INTUBATED, TUBE SECURE. SATURATIONS 89-91%. SUCTIONED SCANT SECRETIONES. LUNGS CLEAR, DIMINISHED. RIGHT ANTERIOR CHEST TUBE URESIL TO SUCTION WITH FLUCUATIONS IN CHAMBER, NO DRAINAGE, NO CREPITUS. SITE DI. RIGHT ARM PICC DI. NS TKO. SODIUM PHOSPHOS REPLACEMENT INFUSING. ABDOMEN SOFT, TUBE FEED PIVOT GOAL 20 CC/HR, RESIDUAL 25 CC REPLACED. URINE OUTPUT GOOD VIA MONIQUE. LOVENOX FOR DVT PREVENTION. BIS MONITOR ON. PARALYTIC OFF YESTERDAY. BILATERAL WRIST RESTRAINTS FOR SAFETY-EXTUBATION RISK. ENHANCED PRECAUTIONS.
--- NOTE | 2020-10-28 10:20 | NUR ---
DR. AARON HERE-UPDATED AND ASSESSED PT. PT REPOSITIONED, ABLE TO OPEN EYES TO NAME AND MOVE EXTREMITIES WEAKLY TO COMMANDS. DENIES PAIN. CONCERN FOR CUFF LEAK, AIR ADDED. NEEDED TO INCREASE TO 75% TO MAINTAIN SATURATIONS >90%
--- NOTE | 2020-10-28 11:49 | NUR ---
PT LIGHTLY SEDATED, TOLERATING VENT. VSS. CONTINUE TO MONITOR
--- NOTE | 2020-10-28 16:53 | NUR ---
PT'S MOM CALLED-UPDATED AND QUESTIONS ANSWERED. PT LIGHTLY SEDATED, ABLE TO OPEN EYES TO NAME AND FOLLOW DIRECTIONS. NO DISTRESS, DENIES PAIN
--- NOTE | 2020-10-28 18:37 | NUR ---
PT WITH STABLE VITALS. TOLERATING VENT. CONTINUE SEDATION-PROPOFOL AT 40 MCG/KG/MIN, PRECEDEX AT 0.7. NO S/S PAIN. RIGHT CHEST TUBE INTACT, NO DRAINAGE. PICC INTACT. REPOSITIONED.
--- NOTE | 2020-10-28 19:15 | NUR ---
ASSUMPTION OF CARE PT REMAINS INTUBATED AT THIS TIME. VENT SETTINGS 18/330/10/75%. INCREASED FIO2 TO 85% DUE TO SPO2 <87%. PT RECEIVING PROPOFOL 40MCG/KG/MIN, PRECEDEX 0.7MCG/KG/HR, AND FENTANYL 100MCG/HR. PT IS SLOW TO RESPOND, BUT OPENS EYES TO STERNAL RUB. UNABLE TO SQUEEZE HANDS TODAY, BUT DOES WIGGLE TOES. PT NODS HEAD YES/NO TO ANSWER QUESTIONS. OGT IN PLACE INFUSING TF AT GOAL RATE. CHEST TUBE REMAINS IN PLACE TO R ANTERIOR CHEST CONNECTED TO SUCTION. DRESSING INTACT. MONIQUE IN PLACE DRAINING PALE YELLOW URINE. SEE SHIFT ASSESSMENT.
[2020-10-29 03:34] LABS: BASOPHILS ABSOLUTE AUTO 0.06 K/mm3 (0.00-0.23); BASOPHILS PERCENT AUTO 0 % (0-2); EOSINOPHILS ABSOLUTE AUTO 0.37 K/mm3 (0.00-0.68); EOSINOPHILS PERCENT AUTO 2 % (0-6); Hematocrit 37.7 % (33.0-51.0); Hemoglobin 12.5 g/dL (11.5-16.0); IMMATURE GRAN ABSOLUTE AUTO 0.87 K/mm3 (0.00-0.10); IMMATURE GRAN PERCENT AUTO 4 % (0-1); LYMPHOCYTES ABSOLUTE AUTO 2.14 K/mm3 (0.84-5.20); LYMPHOCYTES PERCENT AUTO 11 % (21-46); MONOCYTES ABSOLUTE AUTO 0.58 K/mm3 (0.16-1.47); MONOCYTES PERCENT AUTO 3 % (4-13); Mean Corpuscular HGB 31.8 pg (26.0-34.0); Mean Corpuscular HGB Conc 33.2 g/dL (31.5-36.5); Mean Corpuscular Volume 96 fL (80-100); Mean Platelet Volume 10.3 fL (9.1-12.4); NEUTROPHILS ABSOLUTE AUTO 16.29 K/mm3 (1.96-9.15); NEUTROPHILS PERCENT AUTO 80 % (41-73); Platelet Count 405 K/mm3 (150-400); RDW Coefficient Variation 13.5 % (11.7-14.2); RDW Standard Deviation 48.6 fL (35.1-46.3); Red Blood Cell Count 3.93 M/mm3 (3.80-5.20); White Blood Cell Count 20.31 K/mm3 (4.00-11.30)
[2020-10-29 03:54] LABS: Alanine Aminotransfer (ALT/SGP 191 U/L (12-78); Albumin, Blood 2.1 g/dL (3.4-5.0); Albumin/Globulin Ratio 0.6 (0.8-1.8); Alk Phos 124 U/L (50-136); Anion Gap 4 mmol/L (6-16); Aspartate Aminotrans (AST/SGOT 163 U/L (12-37); Bilirubin, Total 0.3 mg/dL (0.1-1.0); Blood Urea Nitrogen 27 mg/dL (8-24); Bun/Creatinine Ratio 47.4 (12.0-20.0); CO2, Blood 38 mmol/L (21-32); Calcium, Blood 7.2 mg/dL (8.5-10.1); Chloride, Blood 102 mmol/L (98-108); Creatinine, Blood 0.57 mg/dL (0.40-1.00); Globulin, Blood 3.8 g/dL (2.2-4.0); Glomerular Filtration Rate >60 (60-); Glucose, Blood 179 mg/dL (70-99); Magnesium, Blood 2.1 mg/dL (1.6-2.4); Phosphorus, Blood 2.2 mg/dL (2.5-4.9); Potassium, Blood 3.1 mmol/L (3.5-5.5); Sodium, Blood 144 mmol/L (136-145); Total Protein, Blood 5.9 g/dL (6.4-8.2)
--- NOTE | 2020-10-29 06:11 | NUR ---
SHIFT SUMMARY PT REMAINS INTUBATED. VENT SETTINGS 18/330/10/95%. PT RECEIVING PROPOFOL 40MCG/KG/MIN, PRECEDEX 0.7MCG/KG/HR, AND FENTANYL 100MCG/HR. PT OPENS EYES DURING CARE AND WITH LIGHT STERNAL RUB. SLOW TO RESPOND BUT ABLE TO WIGGLE TOES AND NOD YES/NO TO QUESTIONS. TUBE FEEDING INFUSING VIA OGT AT GOAL RATE. MONIQUE REMAINS IN PLACE DRAINING CLEAR YELLOW URINE. SHIFT OUTPUT OF 2500ML. WILL REPORT TO ONCOMING RN.
--- NOTE | 2020-10-29 08:30 | NUR ---
PATIENT INTUBATED AND SEDATED. PATIENT RESPONDS TO PAINFUL STIMULI. PATIENT AFEBRILE. NO SIGNS OF PAIN NOTED. PATIENT ON AC 18, TV 330, PEEP 10 AND 100% FIO2. LUNGS DIMINISHED AND COARSE THROUGHOUT. MODERATE AMOUNT OF THIN, CLEAR/ BLOODY SECRETIONS NOTED FROM ETT. PATIENT IN SR, HR 70S TO 90S. SBP 90S TO 1-TEENS. TRACE EDEMA NOTED TO BILAT HANDS. 1+ EDEMA NOTED TO BILAT FEET. TF INFUSING AT GOAL RATE. DATE OF LAST BM ON 10/22. PRN MOM GIVEN. FOLYE IN PLACE AND DRAINING YELLOW COLORED URINE. PATIENT RECEIVING SCHEDULED LASIX. SKIN APPEARS WNL. NS TKO X 2, PRECEDEX INFUSING AT 1 MCG/ KG/ HOUR, PROPOFOL AT 45 MCG/ KG/ MINUTE, AND FENTANYL AT 100 MCG/ HOUR. PATIENT RECEIVING 30 MM KPHOS THIS AM FOR POTASSIUM OF 3.1 AND PHOS OF 2.2. WILL CONTINUE TO MONITOR PATIENT FREQUENTLY THROUGHOUT SHIFT.
--- NOTE | 2020-10-29 10:30 | NUR ---
DR. AARON UPDATED ON PATIENT STATUS. INFORMED THAT WBCS INCREASING. INFORMED THAT POTASSIUM 3.1 AND PHOS 2.2. INFORMED THAT PATIENT RECEIVING 30 MM KPHOS THIS AM FOR REPLACEMENT. INFORMED THAT AST AND ALT INCREASING. STATED NO SEDATION VACATION THIS SHIFT. NO OTHER ORDERS RECEIVED AT THIS TIME.
--- NOTE | 2020-10-29 11:32 | NUR ---
VENTILATOR STARTED FLASHING AND ALARMING IN ROOM WITHOUT ANYONE ELSE IN ROOM AND WITHOUT PATIENT BEING STIMULATED IN ANY WAY. VENT SHOWING TIDAL VOLUMES LOW ZERO. RT CALLED TO ROOM. AIR INSTILLED INTO CUFF BUT CUFF CONTINUED TO HAVE AIR LEAK. PATIENT HOLDING IN 90S. DR. WAYNE CALLED TO ROOM. PROPOFOL INCREASED TO 60 MCG/ KG/ MINUTE AND PRECEDEX INCREASED TO 1.4 MCG/ KG/ HOUR. PATIENT GIVEN [address] WAYNE PLACED NEW 8.0 ETT. 26 AT THE TEETH. 2 MG IV ATIVAN GIVEN PATIENT STILL DID NOT SEEM QUITE SEDATED ENOUGH. TF OFF PER DR. WAYNE ( SAW BILE/ TF WHEN RE-INTUBATING) AND PLACED TO LOW INTERMITTENT SUCTION. PATIENT ON 100% FIO2. WILL CONTINUE TO MONITOR.
--- NOTE | 2020-10-29 12:10 | NUR ---
PATIENT AFEBRILE. HR 70S TO 80S. SBP 90S TO 1-TEENS. TF ON HOLD AND OG TO LIS. VENT SETTINGS 18, 330, 10, 100. PROPOFOL AT 60 MCG/ KG/ MINUTE AND PRECEDEX AT 1.4 MCG/ KG/ HOUR. WILL CONTINUE TO MONITOR.
--- NOTE | 2020-10-29 13:19 | NUR ---
DR. AARON IN ROOM. DR. AARON CLAMPED CHEST TUBE AND ORDERS TO KEEP CLAMPED UNTIL CHEST XR AT 1430. DR. AARON STATED HE WOULD PLACE XR ORDER.
--- NOTE | 2020-10-29 16:10 | NUR ---
PATIENT AFEBRILE. HR IN THE 70S. SBP IN THE LOW 100S. PEEP 13. TF RESTARTED AT 10 MLS/ HOUR PER DR. AARON.
--- NOTE | 2020-10-29 19:27 | NUR ---
SHIFT SUMMARY PATIENT INTUBATED AND SEDATED. PATIENT REMAINED AFEBRILE. PEEP INCREASED FROM 10 TO 13 THIS SHIFT. PATIENT BOUNCED BETWEEN 95 AND 100% FIO2. CHEST TUBE REMOVED BY DR. AARON. VITALS REMAINED STABLE. CUFF BLEW DURING SHIFT SO NEW TUBE EXCHANGED AT THAT TIME. TF AT 10 MLS/ HOUR; TO BE INCREASED TO GOAL IN AM. NO BM THIS SHIFT. PRN MOM GIVEN. MONIQUE DRAINED ADEQUATE AMOUNT OF YELLOW URINE. NO CHANGE TO SKIN. PRECEDEX AT 1.4 MCG/ KG/ HOUR, PROPOFOL AT 60 MCG/ KG/ MINUTE. PATIENT RECEIVED 30 MM K PHOS. REPORT GIVEN TO ASSUMING SUPERVISING BAILIFF NURSE.
[2020-10-30 04:28] LABS: BASOPHILS ABSOLUTE AUTO 0.07 K/mm3 (0.00-0.23); BASOPHILS PERCENT AUTO 0 % (0-2); EOSINOPHILS ABSOLUTE AUTO 0.59 K/mm3 (0.00-0.68); EOSINOPHILS PERCENT AUTO 3 % (0-6); Hematocrit 37.9 % (33.0-51.0); Hemoglobin 12.5 g/dL (11.5-16.0); IMMATURE GRAN ABSOLUTE AUTO 0.66 K/mm3 (0.00-0.10); IMMATURE GRAN PERCENT AUTO 3 % (0-1); LYMPHOCYTES ABSOLUTE AUTO 2.47 K/mm3 (0.84-5.20); LYMPHOCYTES PERCENT AUTO 11 % (21-46); MONOCYTES ABSOLUTE AUTO 1.06 K/mm3 (0.16-1.47); MONOCYTES PERCENT AUTO 5 % (4-13); Mean Corpuscular Volume 97 fL (80-100); Mean Platelet Volume 10.4 fL (9.1-12.4); NEUTROPHILS ABSOLUTE AUTO 18.14 K/mm3 (1.96-9.15); NEUTROPHILS PERCENT AUTO 79 % (41-73); Platelet Count 356 K/mm3 (150-400); RDW Coefficient Variation 13.6 % (11.7-14.2); RDW Standard Deviation 48.4 fL (35.1-46.3); Red Blood Cell Count 3.91 M/mm3 (3.80-5.20); White Blood Cell Count 22.99 K/mm3 (4.00-11.30)
[2020-10-30 04:50] LABS: Alanine Aminotransfer (ALT/SGP 159 U/L (12-78); Albumin, Blood 1.8 g/dL (3.4-5.0); Albumin/Globulin Ratio 0.4 (0.8-1.8); Alk Phos 129 U/L (50-136); Anion Gap 1 mmol/L (6-16); Aspartate Aminotrans (AST/SGOT 81 U/L (12-37); Bilirubin, Total 0.6 mg/dL (0.1-1.0); Blood Urea Nitrogen 20 mg/dL (8-24); Bun/Creatinine Ratio 38.2 (12.0-20.0); CO2, Blood 38 mmol/L (21-32); Calcium, Blood 7.2 mg/dL (8.5-10.1); Chloride, Blood 103 mmol/L (98-108); Creatinine, Blood 0.52 mg/dL (0.40-1.00); Globulin, Blood 4.3 g/dL (2.2-4.0); Glomerular Filtration Rate >60 (60-); Glucose, Blood 141 mg/dL (70-99); Potassium, Blood 3.5 mmol/L (3.5-5.5); Sodium, Blood 142 mmol/L (136-145); Total Protein, Blood 6.1 g/dL (6.4-8.2)
--- NOTE | 2020-10-30 05:58 | NUR ---
SHIFT SUMMARY PT REMAINS INTUBATED. VENT SETTINGS AC 18/330/13/70%. CHEST TUBE REMOVED ON PREVIOUS SHIFT. PT PRONED AT APPROX 2000, PT TOLERATED WELL. TRANSPARENT DRESSING OVER INSERTION SITE. DRESSING IS SECURE WITHOUT SIGNS OF BLEEDING. PT RECEIVING PROPOFOL 65MCG/KG/MIN, PRECEDEX 1.4MCG/KG/HR, NIMBEX 2MCG/KG/MIN, AND FENTANYL 100MCG/HR. TOF 2/4. HR REMAINS IN 70S, NSR. SBP 90S-110S. BOWEL TONES HYPOACTIVE. PIVOT 1.5 INFUSING AT GOAL RATE VIA OGT. FOELY REMAINS IN PLACE DRAINING TEA COLORED URINE. SHIFT OUTPUT OF 600ML. WILL REPORT TO ONCOMING RN.
--- NOTE | 2020-10-30 08:35 | NUR ---
ASSESSMENT- PT SEDATED WITH PROPOFOL AT 65 MCG/KG/MIN AND PRECEDEX AT 1.4 MCG/KG/HR AND FENTANYL PE MANAGER AT 100 MCG/HR. PARALYZED WITH NIMBEX INFUSION AT 2 MCG/KG/MIN. PERRL. ORALLY INTUBATED, TUBE SECURE. TOLERATING VENT SETTINGS. LUNGS COARSE THROUGHOUT, DEPENDENT CRACKLES LEFT SIDE. SUCTIONED SCANT SECRETIONS. APICAL REGULAR, SR, BP STABLE. RIGHT ARM PICC INTACT WITH NS TKO X 2. PIV LEFT WRIST DI. TUBE FEEDING VIA OGT INTACT, ABDOMEN SOFT. UO VIA MONIQUE. POSITIONED PRONE
--- NOTE | 2020-10-30 12:25 | NUR ---
PT REPOSITIONED TO SUPINE, TOLERATED WELL. NIMBEX D/C PER ORDER. BILATERAL WRIST RESTRAINTS ON. LUNGS WITH CRACKLES LEFT BASE
--- NOTE | 2020-10-30 17:36 | NUR ---
BELONGINGS: A GOLD RING WITH NERISSA CENTER STONE, A GOLD BAND WITH SMALL DIAMONDS, AND 2 GOLD/NERISSA EARRINGS GIVEN TO KIM GEORGE, , PER HIS REQUEST BY GILDA REID.
--- NOTE | 2020-10-30 18:32 | NUR ---
PT REMAINS SEDATED WITH PROPOFOL AT 65 MCG/KG/MIN AND PRECEDEX AT 1.4 MCG/KG/HR. TOLERATES MOVEMENT AND TURNING WITHOUT DESATURATIONS. NSR. BP STABLE. NO CREPITUS, RIGHT ANTERIOR DDI. CONTINUE TO MONITOR
[2020-10-31 04:07] LABS: BASOPHILS ABSOLUTE AUTO 0.04 K/mm3 (0.00-0.23); BASOPHILS PERCENT AUTO 0 % (0-2); EOSINOPHILS PERCENT AUTO 1 % (0-6); Hemoglobin 11.9 g/dL (11.5-16.0); IMMATURE GRAN ABSOLUTE AUTO 0.36 K/mm3 (0.00-0.10); IMMATURE GRAN PERCENT AUTO 2 % (0-1); LYMPHOCYTES ABSOLUTE AUTO 1.87 K/mm3 (0.84-5.20); LYMPHOCYTES PERCENT AUTO 9 % (21-46); MONOCYTES ABSOLUTE AUTO 0.99 K/mm3 (0.16-1.47); MONOCYTES PERCENT AUTO 5 % (4-13); Mean Corpuscular HGB 31.2 pg (26.0-34.0); Mean Corpuscular HGB Conc 32.2 g/dL (31.5-36.5); Mean Corpuscular Volume 97 fL (80-100); Mean Platelet Volume 10.6 fL (9.1-12.4); NEUTROPHILS ABSOLUTE AUTO 17.63 K/mm3 (1.96-9.15); NEUTROPHILS PERCENT AUTO 84 % (41-73); Platelet Count 347 K/mm3 (150-400); RDW Coefficient Variation 13.2 % (11.7-14.2); Red Blood Cell Count 3.82 M/mm3 (3.80-5.20); White Blood Cell Count 20.99 K/mm3 (4.00-11.30)
--- NOTE | 2020-10-31 06:02 | NUR ---
SHIFT SUMMARY PT HAS DONE WELL THRU NIGHT. ABLE TO COME DOWN ON FIO2 TO 60%. DID NOT HAVE TO RESTART PARALYTIC, WOULD RECOMMEND GIVING 2MG ATIVAN PRIOR TO ANY REPOSITIONING EFFORTS, PT DOES COUGH WITH MOST ANY CARE, MOVEMENT. ASSESSMENT IS CHARTED. VSS. WILL CONTINUE TO MONITOR.
--- NOTE | 2020-10-31 08:00 | NUR ---
INITAL SHIFT ASSESSMENT PT INTUBATED AND SEDATED AT THIS TIME. SHE IS ON PROPOFOL GTT AND FENTANYL GTT FOR SEDATION. SEEMS TO BE TOLERATING THE VENT WELL WITH THIS SEDATION LEVEL. SHE DOES HOWEVER HAVE SOME PERIODS OF STACKING AND SHE HAS BREAK THROUGH ATIVAN IV FOR ASSISTANCE. WILL CON'T TO ASSESS HER SEDATION LEVEL. WILL TURN PT WHEN RT IS AVALIABLE TO ASSIST WITH THE ET TUBE. PT HAS PRECEDEX GTT ON WELL. WILL CON'T TO TITRATE NEEDED. PT HAS PICC LINE TO THE RIGHT UPPER ARM. DRESSING IS CDI WITH NO S/S OF INFECTION AND PATENT. PT HAS TUBE FEEDING RUNNING AT THIS TIME WITH MINIMAL RESIDUALS. MONIQUE CATH IN PLACE AND DRAINING CLEAR YELLOW URINE. PT DID HAVE A SMALL SMEAR THAT THIS NURSE CLEANED UP AT THIS TIME. PT'S SKIN IS OVERALL CDI. WILL CON'T TO MONITOR AND KEEP PT SAFE T/O REMAINDER OF SHIFT.
--- NOTE | 2020-10-31 13:19 | NUR ---
SHIFT UPDATE PT CON'T TO BE WITHOUT MAJOR CHANGES. SHE TOLERATED BEING UN-PRONED WELL. HER OXYGEN SATS DID DROP TO THE LOW 80'S FOR A SHORT TIME. SAT HER MORE UPRIGHT MORE TO A 75 DEGREE ANGLE AND SATS ARE HOLDING IN THE 90'S. MINIMAL RETURN WITH INLINE SUCTIONS. WHAT DOES COME UP IS RIGHT RED. PT HAS GOOD URINE OUTPUT FROM LASIX IV ADMINISTRATION. PT CON'T TO HAVE KAR SOFT WRIST RESTRAINTS IN PLACE WITH NO SKIN BREAKDOWN OR CIRCULATION ISSUES. NO VENT CHANGES THUS FAR. WILL CON'T TO MONITOR AND KEEP PT SAFE T/O REMAINDER OF SHIFT.
--- NOTE | 2020-10-31 14:17 | NUR ---
RESEARCH PHYSICIST PERFORMED BATH ON PT WHILE PT WAS SUPINE. RN STATED SHE PERFORMED BEDBATH ON PT WHILE PT WAS PRONE.
--- NOTE | 2020-10-31 18:53 | NUR ---
END SHIFT SUMMARY PT CON'T TO HAVE NO ACUTE CHANGES T/O SHIFT. SHE HAS TOLERATED BEING ON HER BACK QUITE WELL. OXYGEN SATS HOLD BETTER WITH HOB AROUND 60 DEGREES. LUNGS CON'T TO HAVE WHEEZING T/O. PT'S BP AND HR HAVE BEEN FAIRLY STABLE T/O SHIFT WITH NO CHANGES FROM BASELINE. KAR SOFT WRIST RESTRAINTS CON'T TO BE IN PLACE WITH NO SKIN OR CIRCULATION ISSUES. REPORT GIVEN TO ONCOMING RN. PT IS STABLE AT THIS TIME. SEE ICU FLOW SHEET FOR GTT RATE CHANGES T/O SHIFT.
[2020-11-01 03:47] LABS: BASOPHILS ABSOLUTE AUTO 0.03 K/mm3 (0.00-0.23); BASOPHILS PERCENT AUTO 0 % (0-2); EOSINOPHILS ABSOLUTE AUTO 0.21 K/mm3 (0.00-0.68); EOSINOPHILS PERCENT AUTO 1 % (0-6); Hemoglobin 11.8 g/dL (11.5-16.0); IMMATURE GRAN ABSOLUTE AUTO 0.28 K/mm3 (0.00-0.10); IMMATURE GRAN PERCENT AUTO 2 % (0-1); LYMPHOCYTES ABSOLUTE AUTO 2.93 K/mm3 (0.84-5.20); LYMPHOCYTES PERCENT AUTO 17 % (21-46); MONOCYTES PERCENT AUTO 8 % (4-13); Mean Corpuscular HGB 31.5 pg (26.0-34.0); Mean Corpuscular HGB Conc 32.8 g/dL (31.5-36.5); Mean Corpuscular Volume 96 fL (80-100); Mean Platelet Volume 10.7 fL (9.1-12.4); NEUTROPHILS ABSOLUTE AUTO 12.39 K/mm3 (1.96-9.15); NEUTROPHILS PERCENT AUTO 72 % (41-73); Platelet Count 380 K/mm3 (150-400); RDW Coefficient Variation 13.2 % (11.7-14.2); RDW Standard Deviation 46.9 fL (35.1-46.3); Red Blood Cell Count 3.75 M/mm3 (3.80-5.20); White Blood Cell Count 17.14 K/mm3 (4.00-11.30)
[2020-11-01 04:09] LABS: Albumin, Blood 1.9 g/dL (3.4-5.0); Anion Gap 1 mmol/L (6-16); Blood Urea Nitrogen 19 mg/dL (8-24); Bun/Creatinine Ratio 39.3 (12.0-20.0); CO2, Blood 37 mmol/L (21-32); Calcium, Blood 7.9 mg/dL (8.5-10.1); Chloride, Blood 103 mmol/L (98-108); Creatinine, Blood 0.48 mg/dL (0.40-1.00); Glomerular Filtration Rate >60 (60-); Glucose, Blood 154 mg/dL (70-99); Phosphorus, Blood 2.1 mg/dL (2.5-4.9); Potassium, Blood 3.5 mmol/L (3.5-5.5); Sodium, Blood 141 mmol/L (136-145)
--- NOTE | 2020-11-01 06:45 | NUR ---
Sedated under Propofol and Precedex. Pupils equal and react to light bilateral. Respiratory supported by mechanical ventilation. No changes were done to vent settings. No secretion from ETT. Hemodynamic stable w/o support. Pulse in normal sinus rhythm, around 70 bpm. SBP around 140. Urine via george catheter, normal output. Her family called and were updated on her well being.
--- NOTE | 2020-11-01 07:00 | NUR ---
PT CARE ASSUMED AFTER REPORT FROM DIGITAL CONTENT COORDINATOR. PT SEDATED, VENTED.
--- NOTE | 2020-11-01 16:44 | NUR ---
PT HAD PARTIAL BED BATH ON FRONT. PT WAS TOO UNSTABLE TO GET A COMPLET BED CHANGE.
[2020-11-02 03:40] LABS: BASOPHILS ABSOLUTE AUTO 0.02 K/mm3 (0.00-0.23); BASOPHILS PERCENT AUTO 0 % (0-2); EOSINOPHILS ABSOLUTE AUTO 0.23 K/mm3 (0.00-0.68); EOSINOPHILS PERCENT AUTO 2 % (0-6); Hemoglobin 11.4 g/dL (11.5-16.0); IMMATURE GRAN ABSOLUTE AUTO 0.18 K/mm3 (0.00-0.10); IMMATURE GRAN PERCENT AUTO 1 % (0-1); LYMPHOCYTES ABSOLUTE AUTO 3.02 K/mm3 (0.84-5.20); LYMPHOCYTES PERCENT AUTO 20 % (21-46); MONOCYTES PERCENT AUTO 9 % (4-13); Mean Corpuscular HGB 31.1 pg (26.0-34.0); Mean Corpuscular HGB Conc 32.6 g/dL (31.5-36.5); Mean Corpuscular Volume 96 fL (80-100); Mean Platelet Volume 10.5 fL (9.1-12.4); NEUTROPHILS ABSOLUTE AUTO 10.11 K/mm3 (1.96-9.15); NEUTROPHILS PERCENT AUTO 68 % (41-73); Platelet Count 344 K/mm3 (150-400); RDW Coefficient Variation 13.3 % (11.7-14.2); Red Blood Cell Count 3.66 M/mm3 (3.80-5.20); White Blood Cell Count 14.96 K/mm3 (4.00-11.30)
[2020-11-02 03:58] LABS: Albumin, Blood 1.9 g/dL (3.4-5.0); Anion Gap 2 mmol/L (6-16); Blood Urea Nitrogen 15 mg/dL (8-24); Bun/Creatinine Ratio 33.6 (12.0-20.0); CO2, Blood 32 mmol/L (21-32); Chloride, Blood 105 mmol/L (98-108); Creatinine, Blood 0.45 mg/dL (0.40-1.00); Glomerular Filtration Rate >60 (60-); Glucose, Blood 145 mg/dL (70-99); Phosphorus, Blood 2.7 mg/dL (2.5-4.9); Potassium, Blood 3.5 mmol/L (3.5-5.5); Sodium, Blood 139 mmol/L (136-145)
--- NOTE | 2020-11-02 06:57 | NUR ---
Sedated under Propofol and Precedex, and receiving analgesia under Fentanyl. Opening her eyes to touch. Not following commands. Pupils equal and reactive. Respiratory supported by mechanical ventilation. No changes were done to the vent settings. Hemodynamic stable w/o support. Systolic blood pressure around 120. Pulse in sinus bradycardia rhythm, around 58 bpm. Urine via george catheter. Normal output. No bowel movement. Bathed. Her family called and were updated on her well being.
--- NOTE | 2020-11-02 12:00 | NUR ---
PT RESPONDS TO VERBAL COMMANDS BY NODDING HEAD AND SQUEEZING HANDS. PT NODS "YES" TO COMFORT AND "NO" TO SHORT OF BREATH. NO ACUTE DISTRESS AT THIS TIME.
[2020-11-02 12:09] LABS: Albumin/Globulin Ratio 0.4 (0.8-1.8); Bilirubin, Direct 0.2 mg/dL (0.0-0.3); Bilirubin, Indirect 0.2 mg/dL (0.1-0.7); Bilirubin, Total 0.4 mg/dL (0.1-1.0); Globulin, Blood 4.6 g/dL (2.2-4.0); Total Protein, Blood 6.6 g/dL (6.4-8.2)
--- NOTE | 2020-11-02 14:45 | NUR ---
PT TO CT SCAN, UNEVENTFUL TRIP. FI02 DOWN TO 45%. NO ACUTE DISTRESS.
--- NOTE | 2020-11-02 15:53 | NUR ---
FI02 DOWN TO 40% PER DR VELAZCO. PT IN NO ACUTE DISTRESS
--- NOTE | 2020-11-02 16:10 | NUR ---
NEW TUBE FEEDING BOTTLE AND TUBING PLACED. PT RESTING QUIETLY, NO ACUTE DISTRESS. FENTANYL [facility] [employer]SE DECREASED TO 75MCG/HR PER ORDERS TO DECREASE SEDATION TOLERATED.
--- NOTE | 2020-11-02 20:00 | NUR ---
PATIENT REMAINS INTUBATED AND SEDATED WITH PROPOFOL 65 MCG, PRECEDEX 1 MCG AND FENTANYL 50 MCG. AWAKENS EASILY WITH COUGHING AND GAGGING ON ETT, NOT FOLLOWING DIRECTIONS. VENT SET AT AC 18, TV 400, PEEP 5, FIO2 40% SUCTIONING THICK HOLMAN BLOOD TINGED SPUTUM. BILAT WRIST RESTRAINTS REMAIN IN PLACE TO PREVENT ACCIDENTAL EXTUBATION. OG IN PLACE WITH PIVOT 1.5 AT GOAL RATE OF 20 CC/HR.
[2020-11-03 04:27] LABS: BASOPHILS ABSOLUTE AUTO 0.04 K/mm3 (0.00-0.23); BASOPHILS PERCENT AUTO 0 % (0-2); EOSINOPHILS ABSOLUTE AUTO 0.24 K/mm3 (0.00-0.68); EOSINOPHILS PERCENT AUTO 1 % (0-6); Hematocrit 34.3 % (33.0-51.0); Hemoglobin 11.2 g/dL (11.5-16.0); IMMATURE GRAN ABSOLUTE AUTO 0.17 K/mm3 (0.00-0.10); IMMATURE GRAN PERCENT AUTO 1 % (0-1); LYMPHOCYTES ABSOLUTE AUTO 3.37 K/mm3 (0.84-5.20); LYMPHOCYTES PERCENT AUTO 18 % (21-46); MONOCYTES ABSOLUTE AUTO 1.48 K/mm3 (0.16-1.47); MONOCYTES PERCENT AUTO 8 % (4-13); Mean Corpuscular HGB 31.2 pg (26.0-34.0); Mean Corpuscular HGB Conc 32.7 g/dL (31.5-36.5); Mean Corpuscular Volume 96 fL (80-100); Mean Platelet Volume 10.5 fL (9.1-12.4); NEUTROPHILS ABSOLUTE AUTO 13.83 K/mm3 (1.96-9.15); NEUTROPHILS PERCENT AUTO 72 % (41-73); Platelet Count 345 K/mm3 (150-400); RDW Coefficient Variation 13.2 % (11.7-14.2); Red Blood Cell Count 3.59 M/mm3 (3.80-5.20); White Blood Cell Count 19.13 K/mm3 (4.00-11.30)
[2020-11-03 04:48] LABS: Albumin, Blood 1.9 g/dL (3.4-5.0); Anion Gap 4 mmol/L (6-16); Blood Urea Nitrogen 16 mg/dL (8-24); Bun/Creatinine Ratio 27.2 (12.0-20.0); CO2, Blood 31 mmol/L (21-32); Calcium, Blood 7.9 mg/dL (8.5-10.1); Chloride, Blood 106 mmol/L (98-108); Creatinine, Blood 0.59 mg/dL (0.40-1.00); Glomerular Filtration Rate >60 (60-); Glucose, Blood 123 mg/dL (70-99); Potassium, Blood 3.2 mmol/L (3.5-5.5); Sodium, Blood 141 mmol/L (136-145)
--- NOTE | 2020-11-03 05:36 | NUR ---
DURING WEAN PROPOFOL OFF, PRECEDEX 1 MCG, AND FENTANYL 50 MCG CONTINUE. PATIENT AWAKE FOLLOWING SIMPLE DIRECTIONS NODING HEAD YES AND NO TO SIMPLE QUESTIONS. RESP UP TO 40'S AND COUGHING, DESPITE ATTEMPTING TO WARP YARN SORTER PATIENT. SEE RT CHARTING FOR WEAN. PATIENT PLACED BACK TO SAME SETTINGS AND PROPOFOL RESTARTED.
--- NOTE | 2020-11-03 06:59 | NUR ---
SUMMARY PATIENT REMAINS INTUBATED AND SEDATED WITH PROPOFOL 65 MCG PRECEDEX 1 MCG FENTANYL 50 MCG AWAKENS VERY EASILY. ETT IN PLACE WITH VENT AC VC+ 18, TV 400, PEEP 5, FIO2 40% SUCTIONING BLOODY/HOLMAN SPUTUM VIA ETT. OG IN PLACE WITH PIVOT 1.5 AT GOAL RATE OF 20 CC/HR.
--- NOTE | 2020-11-03 07:45 | NUR ---
Received report from Jaimie Calhoun. Patient is intubated and sedated. She has 8.0 ET and is 25cm at teeth with vent settings of 18/400/50/5 with sats 94%. She has OG in place with Pivot 1.5 at 20 ml and 30 ml water flushes Q4, residuals less than 50ml. She has 14Fr Horan draining to gravity. She has 20ga IV in LW flushed and SL'd. She also has PICC ALEXA dressing intact and site WNL's and is infusingPropofol at 65 mcg/kg/min, Precedex at 1.0 mcg/kg/hr, NS TKO, and 50 mcg/hr. Am care, Oral care Cath care and was repositioned. She is in Bilateral soft wrist restraints.
--- NOTE | 2020-11-03 10:00 | NUR ---
Dr Mishra by and wants to wean down sedation and she is not tolerate well but will keep trying. Patient received bath and linen change with repositioning. VSS, See EMR. She remains proned and dialysis stated when un-proned will come to do dialysis. Med tolerated through OG. No puroseful movemts other then head.
--- NOTE | 2020-11-03 13:00 | NUR ---
No significant changes with patient still unable to reduce sedation. She becomes agitated and starts to cough when weaning sedtaion, notified Dr Mishra and will wait iuntil am to weaning trial. Right chest tube site remaisn covered with clear op site C/D/I.
--- NOTE | 2020-11-03 15:30 | NUR ---
Gave mother update. Patient has been resting on current vent setting for last few hours on PC 18/10 50% and sats >90% and tolerating well. VSS, See EMR.
--- NOTE | 2020-11-03 18:25 | NUR ---
Patient doing well on PC 18/10 50%. VSS. Propofol at 65 mcg/kg/min, Precedex at 0.3 mcg/kg/hr, Fentanyl 50 mcg/hr and NS TKO. She withdrawls with oral care. Plan is to wean in am. No Plan to prone tonite.
[2020-11-04 05:23] LABS: BASOPHILS ABSOLUTE AUTO 0.03 K/mm3 (0.00-0.23); BASOPHILS PERCENT AUTO 0 % (0-2); EOSINOPHILS ABSOLUTE AUTO 0.01 K/mm3 (0.00-0.68); EOSINOPHILS PERCENT AUTO 0 % (0-6); Hematocrit 32.7 % (33.0-51.0); Hemoglobin 10.9 g/dL (11.5-16.0); IMMATURE GRAN ABSOLUTE AUTO 0.24 K/mm3 (0.00-0.10); IMMATURE GRAN PERCENT AUTO 1 % (0-1); LYMPHOCYTES ABSOLUTE AUTO 2.24 K/mm3 (0.84-5.20); LYMPHOCYTES PERCENT AUTO 13 % (21-46); MONOCYTES ABSOLUTE AUTO 1.24 K/mm3 (0.16-1.47); MONOCYTES PERCENT AUTO 7 % (4-13); Mean Corpuscular HGB 31.8 pg (26.0-34.0); Mean Corpuscular HGB Conc 33.3 g/dL (31.5-36.5); Mean Corpuscular Volume 95 fL (80-100); Mean Platelet Volume 10.4 fL (9.1-12.4); NEUTROPHILS ABSOLUTE AUTO 13.73 K/mm3 (1.96-9.15); NEUTROPHILS PERCENT AUTO 78 % (41-73); Platelet Count 366 K/mm3 (150-400); RDW Coefficient Variation 13.3 % (11.7-14.2); RDW Standard Deviation 46.6 fL (35.1-46.3); Red Blood Cell Count 3.43 M/mm3 (3.80-5.20); White Blood Cell Count 17.49 K/mm3 (4.00-11.30)
[2020-11-04 06:11] LABS: Anion Gap 5 mmol/L (6-16); Blood Urea Nitrogen 17 mg/dL (8-24); Bun/Creatinine Ratio 28.4 (12.0-20.0); CO2, Blood 26 mmol/L (21-32); Calcium, Blood 8.6 mg/dL (8.5-10.1); Chloride, Blood 108 mmol/L (98-108); Glomerular Filtration Rate >60 (60-); Glucose, Blood 148 mg/dL (70-99); Magnesium, Blood 2.2 mg/dL (1.6-2.4); Phosphorus, Blood 2.9 mg/dL (2.5-4.9); Potassium, Blood 3.6 mmol/L (3.5-5.5); Sodium, Blood 139 mmol/L (136-145)
--- NOTE | 2020-11-04 07:36 | NUR ---
SUMMARY PATIENT REMAINS INTUBATED AND SEDATED WITH PROPOFOL 65 MCG, PRECEDEX 0.3 MCG, AND FENTANYL 50 MCG/HR. PATIENT AWAKENS EASILY TO SLIGHT STIMULI, FOLLOWING SIMPLE DIRECTIONS. VENT PRESSURE CONTROL 18/10 FIO2 40% SUCTIONING MOD AMT OF BLOOD TINGED SECRETIONS. OG REMAINS IN PLACE WITH PIVOT AT GOAL RATE OF 20 CC/HR.
--- NOTE | 2020-11-04 07:41 | NUR ---
PRECEDEX ON STAND BY. PT OPENS EYES AND FOLLOWS SIMPLE COMMANDS, NODS YES AND NO APPROPRIATLY.
--- NOTE | 2020-11-04 08:13 | NUR ---
DR STEIN AT BEDSIDE, AWAITING NEW ORDERS.
--- NOTE | 2020-11-04 09:39 | NUR ---
PT ON SBT FROM [id number]. PT TOLERATED WELL BUT GOT TIRED WITH INCREASED RESPIRATORY RATE. PT WAS AWAKE AND FOLLOWING COMMANDS. DENIED PAIN, DENIED SOB UNTIL THE END OF THE WEANING TRIAL. PROPOFOL INCREASED BACK TO 45MCG.
--- NOTE | 2020-11-04 10:47 | NUR ---
PT PLACED BACK ON AC/PC-18, FI02-40, PEEP-5. PROPOFOL UP TO 55MCG DUE TO AGGITATION AND COUGHING. COMPLETE BED BATH GIVEN PT HAD LARGE SOFT BM.
--- NOTE | 2020-11-04 11:59 | NUR ---
NEW TUBE FEEDING BOTTLE AND TUBING HUNG. PROPFOL INCREASED TO 65MCG
--- NOTE | 2020-11-04 12:40 | NUR ---
PT CONTINUES TO BE EASILY AWOKEN AND RESLESS WITH COUGHING. PRECEDEX RESTARTED AT 0.3MCG/KG/HR.
--- NOTE | 2020-11-04 18:38 | NUR ---
BP LABILE. PRECEDEX ON STANDBY. PT REMAINS SEDATED ON VENT. PTS MOTHER WAS UPDATED PER REQUEST. REPORT TO BE GIVEN TO ONCOMING RN.
--- NOTE | 2020-11-04 21:57 | NUR ---
SHIFT ASSESSMENT DONE-NOTED, GTT RATES & VITALS IN FLOWSHEET. CONTINUE ASSESSMENTS AND CARE.
[2020-11-05 05:28] LABS: BASOPHILS ABSOLUTE AUTO 0.05 K/mm3 (0.00-0.23); BASOPHILS PERCENT AUTO 0 % (0-2); EOSINOPHILS ABSOLUTE AUTO 0.04 K/mm3 (0.00-0.68); EOSINOPHILS PERCENT AUTO 0 % (0-6); Hematocrit 34.5 % (33.0-51.0); Hemoglobin 11.1 g/dL (11.5-16.0); IMMATURE GRAN ABSOLUTE AUTO 0.27 K/mm3 (0.00-0.10); IMMATURE GRAN PERCENT AUTO 1 % (0-1); LYMPHOCYTES ABSOLUTE AUTO 3.17 K/mm3 (0.84-5.20); LYMPHOCYTES PERCENT AUTO 16 % (21-46); MONOCYTES ABSOLUTE AUTO 1.69 K/mm3 (0.16-1.47); MONOCYTES PERCENT AUTO 8 % (4-13); Mean Corpuscular HGB Conc 32.2 g/dL (31.5-36.5); Mean Corpuscular Volume 96 fL (80-100); Mean Platelet Volume 10.5 fL (9.1-12.4); NEUTROPHILS ABSOLUTE AUTO 15.23 K/mm3 (1.96-9.15); NEUTROPHILS PERCENT AUTO 75 % (41-73); Platelet Count 397 K/mm3 (150-400); RDW Coefficient Variation 13.5 % (11.7-14.2); RDW Standard Deviation 48.1 fL (35.1-46.3); Red Blood Cell Count 3.58 M/mm3 (3.80-5.20); White Blood Cell Count 20.45 K/mm3 (4.00-11.30)
[2020-11-05 06:11] LABS: Albumin, Blood 2.2 g/dL (3.4-5.0); Anion Gap 4 mmol/L (6-16); Blood Urea Nitrogen 18 mg/dL (8-24); Bun/Creatinine Ratio 29.3 (12.0-20.0); CO2, Blood 27 mmol/L (21-32); Calcium, Blood 8.4 mg/dL (8.5-10.1); Chloride, Blood 109 mmol/L (98-108); Creatinine, Blood 0.61 mg/dL (0.40-1.00); Glomerular Filtration Rate >60 (60-); Glucose, Blood 108 mg/dL (70-99); Phosphorus, Blood 3.1 mg/dL (2.5-4.9); Sodium, Blood 140 mmol/L (136-145)
--- NOTE | 2020-11-05 08:59 | NUR ---
Assumed care of pt at 0700 with Fatuma LYONS. Drips: Propofol 65 mcg/kg/min Fentanyl 50 mcg/hr Vent: 8.0 cm ETT, 25 cm at teeth. Positioning: Supine with pillows beneath right side. HOB 30 degrees. Pt awake. See shift assessment for additional details.
--- NOTE | 2020-11-05 12:42 | NUR ---
Pt on pressure support 15/5 for 30 minutes and then 7/5 for 1 h and 30 mins. Pt nodded head "no" when asked if she was feeling tired. Nodded "yes" for anxious. Shrugged shoulders when asked if she was short of breath. Extubated at 1228. OG tube and restraints removed at this time. Propofol remains off and disconnected from patient. Fentanyl stopped.
--- NOTE | 2020-11-05 14:16 | NUR ---
Family updated by Dr Mishra. Family visited outside pt's room shortly afterwards. Pt appeared to recognize visitors, smiling and waving to them. Pt remains on 6 LPM NC. SpO2 90% or greater. RR 20s. Pt not in distress at this time.
--- NOTE | 2020-11-05 18:10 | NUR ---
SUMMARY Neuro: Pt A&O x 2. Answers questions. Follows commands. Communicates needs. Pleasant and cooperative with care. Musculoskeletal: Mobility limited due to weakness and deconditioning. Mobilize with ceiling lift. Out of bed to chair today for more than 4 hours. Respiratory: Lungs dim t/o. Extuabted today. SpO2 90% or greater with 6 LPM NC. Nonproductive cough. Respirations even and unlabored. Cardiac: SR per monitor, rate 79. BP stable. Unremarkable heart sounds. Trace edema BUE and BLE. 2+ pulses radial, pedal, and post tibial. Capillary refill less than 3 seconds BUE and BLE. GI: NPO at this time. Normal BT. One bowel movement today. : Horan catheter in place with good urine output this shift. Skin: Clear dressing to right chest C/D/I, from previous chest tube site. Otherwise, skin unremarkable. Psychosocial: Pt pleasant and cooperative with care. Smiling and waving at staff as well as window visitors. Family visited pt from window today, also brought a pet dog. Pt appeared to recognize visitors. Family updated twice by this RN and once by Dr Mishra.
--- NOTE | 2020-11-05 20:55 | NUR ---
ASSUMED CARE @1900. PATIENT IS ALERT AND ORIENTED X3-4, SOME CONFUSION AND SLOW TO RESPOND, ORIENTED TO SLEF, CITY, YEAR. FOLLOWS COMMANDS, PUPILS REACTIVE TO LIGHT. GENERALIZED WEAKNESS. LUNGS DIMINISHED, MORE CLEAR ON THE LEFT. 02 SATS 95% ON 2L VIA NC. DRY COUGH. PT ABLE TO WHISPER ANSWERS, DENIES SOB. NSR @70s-80s. DENIES ANY PAIN. PATIENT SITTING UP WATCHING TV. PT NPO, CALLED HOSPITALIST AND VFEND IV ORDERED.
[2020-11-06 03:39] LABS: BASOPHILS ABSOLUTE AUTO 0.03 K/mm3 (0.00-0.23); BASOPHILS PERCENT AUTO 0 % (0-2); EOSINOPHILS ABSOLUTE AUTO 0.02 K/mm3 (0.00-0.68); EOSINOPHILS PERCENT AUTO 0 % (0-6); Hematocrit 33.5 % (33.0-51.0); Hemoglobin 11.1 g/dL (11.5-16.0); IMMATURE GRAN ABSOLUTE AUTO 0.12 K/mm3 (0.00-0.10); IMMATURE GRAN PERCENT AUTO 1 % (0-1); LYMPHOCYTES ABSOLUTE AUTO 3.07 K/mm3 (0.84-5.20); LYMPHOCYTES PERCENT AUTO 20 % (21-46); MONOCYTES ABSOLUTE AUTO 1.03 K/mm3 (0.16-1.47); MONOCYTES PERCENT AUTO 7 % (4-13); Mean Corpuscular HGB 31.4 pg (26.0-34.0); Mean Corpuscular HGB Conc 33.1 g/dL (31.5-36.5); Mean Corpuscular Volume 95 fL (80-100); Mean Platelet Volume 9.9 fL (9.1-12.4); NEUTROPHILS ABSOLUTE AUTO 10.79 K/mm3 (1.96-9.15); NEUTROPHILS PERCENT AUTO 72 % (41-73); Platelet Count 429 K/mm3 (150-400); RDW Coefficient Variation 13.2 % (11.7-14.2); RDW Standard Deviation 46.4 fL (35.1-46.3); Red Blood Cell Count 3.54 M/mm3 (3.80-5.20); White Blood Cell Count 15.06 K/mm3 (4.00-11.30)
[2020-11-06 04:01] LABS: Albumin, Blood 2.3 g/dL (3.4-5.0); Anion Gap 3 mmol/L (6-16); Blood Urea Nitrogen 22 mg/dL (8-24); Bun/Creatinine Ratio 38.8 (12.0-20.0); CO2, Blood 28 mmol/L (21-32); Calcium, Blood 8.3 mg/dL (8.5-10.1); Chloride, Blood 111 mmol/L (98-108); Creatinine, Blood 0.57 mg/dL (0.40-1.00); Glomerular Filtration Rate >60 (60-); Glucose, Blood 83 mg/dL (70-99); Phosphorus, Blood 3.1 mg/dL (2.5-4.9); Potassium, Blood 3.4 mmol/L (3.5-5.5); Sodium, Blood 142 mmol/L (136-145)
[2020-11-06 04:43] LABS: Magnesium, Blood 2.1 mg/dL (1.6-2.4)
--- NOTE | 2020-11-06 06:01 | NUR ---
SHIFT SUMMARY PATIENT IS ALERT AND ORIENTED, WITHDRAWN BUT FOLLOWS COMMANDS AND REPSONDS APPROPRIATELY. 02 SATS 93-95% ON 2L VIA NC. PATIENT DENIES SOB. HR SR 70s-80s. GENERAL WEAKNESS, TWO PERSON ASSISTANCE WITH REPOSITIONING. MONIQUE DRAINING DARK YELLOW URINE. EDEMA IN THE HANDS, ELEVATED ON PILLOWS. PATIENT RESTING IN BED WATCHING TV. WILL CONTINUE TO MONITOR AND REPORT TO DAYSHIFT RN
--- NOTE | 2020-11-06 10:47 | NUR ---
PATIENT UP IN CHAIR SINCE 0800, TOLERATING WELL. MOVED VIA LIFT. PT DENIES PAIN/DISCOMFORT. PT HAS WORKED WITH PT AND OT THIS MORNING, ENGAGING WELL WITH THERAPY.
--- NOTE | 2020-11-06 15:33 | NUR ---
PT REMAINS UP IN CHAIR, DENIES DISCOMFORT. ASSISTED IN POSITIONING WITH PILLOWS THROUGHOUT SHIFT. PT TODAY COMPLAINED THAT HER EYES FELT DRY, LACRI-LUBE APPLIED, PT ENDORSED RELIEF. PT ENCOURAGED AND ASSISTED IN USE OF FLUTTER VALVE/INCENTIVE SPIROMETER THROUGHOUT SHIFT. PT WORKED WITH SPEECH THERAPY TODAY, SEE ST NOTE. PT AGREEABLE TO ORAL CARE WHICH WAS DONE T/O THE DAY.
--- NOTE | 2020-11-06 16:59 | NUR ---
REPORT GIVEN TO DANNIELLE LYONS IN PCU. PT TRANSFERED TO RM 224. THIS RN CALLED AND UPDATED PT'S MOM ON ROOM CHANGE AND TRANSFER, QUESTIONS ANSWERED TO SATISFACTION.
--- NOTE | 2020-11-06 17:11 | NUR ---
PT ARRIVES FROM ICU 7 TO 226. PT PLACED ON TELEMETRY UPON ARRIVAL AND BLUETOOTH OXYMETRY IN PLACE. PT WITH SPO2 OF 91% ON 1L NC. PT DENIES CP OR SOB. LS ARE COARSE WITH EXPIRATORY WHEEZES NOTED T/O. PT ALERT SHE IS ANSWERING QUESTIONS IN WHISPER AND HEAD NODS SHE REPORTS SORE THROAT FROM INTUBATION. PT PROVIDED WITH ICE WATER WITH SLOW SIPS. PER DR AGUILAR SLIDING SCALE INSULIN TO BE D/C AND Q6 GLUCOSE STICKS CHANGED TO ACHS. PT OTHERWISE IS RESTING WELL IN BED THE BED WATCHING TV WITHOUT DISTRESS. SKIN PWD AND INTACT.
[2020-11-07 05:29] LABS: BASOPHILS ABSOLUTE AUTO 0.04 K/mm3 (0.00-0.23); BASOPHILS PERCENT AUTO 0 % (0-2); EOSINOPHILS ABSOLUTE AUTO 0.04 K/mm3 (0.00-0.68); EOSINOPHILS PERCENT AUTO 0 % (0-6); Hematocrit 36.8 % (33.0-51.0); Hemoglobin 12.1 g/dL (11.5-16.0); IMMATURE GRAN ABSOLUTE AUTO 0.15 K/mm3 (0.00-0.10); IMMATURE GRAN PERCENT AUTO 1 % (0-1); LYMPHOCYTES ABSOLUTE AUTO 3.34 K/mm3 (0.84-5.20); LYMPHOCYTES PERCENT AUTO 22 % (21-46); MONOCYTES ABSOLUTE AUTO 1.06 K/mm3 (0.16-1.47); MONOCYTES PERCENT AUTO 7 % (4-13); Mean Corpuscular HGB 31.2 pg (26.0-34.0); Mean Corpuscular HGB Conc 32.9 g/dL (31.5-36.5); Mean Corpuscular Volume 95 fL (80-100); Mean Platelet Volume 9.7 fL (9.1-12.4); NEUTROPHILS ABSOLUTE AUTO 10.72 K/mm3 (1.96-9.15); NEUTROPHILS PERCENT AUTO 70 % (41-73); NRBC ABSOLUTE 0.02 K/mm3 (0.00-0.02); NRBC Auto 0.1 /100 WBC (0.0-0.2); Platelet Count 494 K/mm3 (150-400); RDW Coefficient Variation 13.3 % (11.7-14.2); RDW Standard Deviation 46.5 fL (35.1-46.3); Red Blood Cell Count 3.88 M/mm3 (3.80-5.20); White Blood Cell Count 15.35 K/mm3 (4.00-11.30)
[2020-11-07 05:41] LABS: Albumin, Blood 2.6 g/dL (3.4-5.0); Anion Gap 5 mmol/L (6-16); Blood Urea Nitrogen 28 mg/dL (8-24); CO2, Blood 25 mmol/L (21-32); Calcium, Blood 8.5 mg/dL (8.5-10.1); Chloride, Blood 110 mmol/L (98-108); Creatinine, Blood 0.58 mg/dL (0.40-1.00); Glomerular Filtration Rate >60 (60-); Glucose, Blood 93 mg/dL (70-99); Phosphorus, Blood 2.7 mg/dL (2.5-4.9); Potassium, Blood 3.4 mmol/L (3.5-5.5); Sodium, Blood 140 mmol/L (136-145)
--- NOTE | 2020-11-07 06:28 | NUR ---
SHIFT SUMMARY ASSUMED CARE OF PT AT 1900. PT IS A/OX4. HEART SOUNDS REGULAR, TELE SHOWS SINUS. LUNG SOUNDS HAVE INSPIRATORY WHEEZES AND ARE COURSE T/O. PT WAS ON 1L NC. AT ONE POINT PT HAD TAKEN OFF O2 AND DESATURATED TO 83%. ONCE PUT BACK ON PT REMAINED IN THE 90%. PT HAS A WET COUGH. PT C/O HER THROAT HURTING AND TALKS SOFTLY. PT HAS A CATHETER DRAINING WITH GRAVITY. PT TALKED ON PHONE WITH MOTHER. PT WAS TEARFUL AND WANTS TO GO HOME. CALL LIGHT IN REACH, BED IN LOWEST POSTION.
--- NOTE | 2020-11-07 15:02 | NUR ---
PT TRANSFERRED TO ROOM 205. REPORT GIVEN TO SAP SENIOR DEVELOPER AT THIS TIME.
--- NOTE | 2020-11-07 15:41 | NUR ---
ASSUMED CARE AT 1500, A&OX4, VSS/2LNC BIOX @ 90, MONIQUE PATENT & DRAINING, SEBASTIAN PO H20 WITH ASSISTANCE. WILL REPORT TO JOESPH MENDEZ RN.
--- NOTE | 2020-11-08 02:31 | NUR ---
SHIFT SUMMARY: PATIENT IS ALERT AND ORIENTED X4. PATIENT IS ON NC WITH 2L OXYGEN BUT WILL INCREASE TO 5L OXYGEN WITH AMBULATION. LUNG SOUNDS HAVE INSPIRATORY WHEEZES AND ARE COURSE THROUGHOUT. SHE HAS AN OCCASIONAL DRY NONPRODUCTIVE COUGH. BIOX IS IN PLACE. PATIENT HAS MONIQUE DRAINING PER GRAVITY WITH NO KINKS IN TUBING. PATIENT HAS BEEN REASSURED THAT SHE IS SLOWLY IMPROVING AND CAN AT TIMES BECOME TEARFUL. CALLS APPROPRIATELY. CALL LIGHT WITHIN REACH. THE PLAN IS TO IMPROVE STRENGTH AND STABILITY WELL WEAN HER OFF OXYGEN WHEN APPROPRIATE.
--- NOTE | 2020-11-08 17:12 | NUR ---
SHIFT SUMMARY PT A&OX4, VSS/1LNC AT REST/6L WITH EXERTION, DENIES PAIN, HOME OXYGEN EVAL COMPLETED TODAY - PT HAS OXYGEN AT HOME FROM PRE-HOSPITAL ADMIT. STAND PIVOT TO CHAIR/BSC/BED WITH GAIT BELT/FWW AND 2 PP MOD ASSIST. PT HAS DONE BREATHING EXERCISES/I.S. T/O SHIFT AND PHYSICAL THERAPY EXERCISES TO STRENGTHEN LEGS/ARMS AND STANDING AND SITTING SAFELY. SEBASTIAN PO INTAKE; ALTHOUGH LOW INTAKE, TRIES TO DRINK HER ENSURE EVERY MEAL. PO MEDS TAKEN 1 AT A TIME WITH ENSURE SHAKE TO SWALLOW. WILL REPORT TO ONCOMING NOC RN.
[2020-11-09 04:44] LABS: BASOPHILS ABSOLUTE AUTO 0.03 K/mm3 (0.00-0.23); BASOPHILS PERCENT AUTO 0 % (0-2); EOSINOPHILS ABSOLUTE AUTO 0.03 K/mm3 (0.00-0.68); EOSINOPHILS PERCENT AUTO 0 % (0-6); Hematocrit 37.2 % (33.0-51.0); Hemoglobin 12.5 g/dL (11.5-16.0); IMMATURE GRAN ABSOLUTE AUTO 0.14 K/mm3 (0.00-0.10); IMMATURE GRAN PERCENT AUTO 1 % (0-1); LYMPHOCYTES ABSOLUTE AUTO 3.02 K/mm3 (0.84-5.20); LYMPHOCYTES PERCENT AUTO 16 % (21-46); MONOCYTES ABSOLUTE AUTO 0.95 K/mm3 (0.16-1.47); MONOCYTES PERCENT AUTO 5 % (4-13); Mean Corpuscular HGB 31.5 pg (26.0-34.0); Mean Corpuscular HGB Conc 33.6 g/dL (31.5-36.5); Mean Corpuscular Volume 94 fL (80-100); Mean Platelet Volume 9.5 fL (9.1-12.4); NEUTROPHILS PERCENT AUTO 78 % (41-73); Platelet Count 516 K/mm3 (150-400); RDW Standard Deviation 44.7 fL (35.1-46.3); Red Blood Cell Count 3.97 M/mm3 (3.80-5.20); White Blood Cell Count 18.77 K/mm3 (4.00-11.30)
[2020-11-09 05:02] LABS: Anion Gap 5 mmol/L (6-16); Blood Urea Nitrogen 20 mg/dL (8-24); Bun/Creatinine Ratio 37.4 (12.0-20.0); CO2, Blood 26 mmol/L (21-32); Chloride, Blood 104 mmol/L (98-108); Creatinine, Blood 0.54 mg/dL (0.40-1.00); Glomerular Filtration Rate >60 (60-); Glucose, Blood 94 mg/dL (70-99); Magnesium, Blood 1.8 mg/dL (1.6-2.4); Sodium, Blood 135 mmol/L (136-145)
--- NOTE | 2020-11-09 06:35 | NUR ---
PT IS A/OX4. ABLE TO MAKE HER NEEDS KNOWN. NO EVENTS OVER NIGHT. HOARSE VOICE, WHISPERS. OXYGEN AT 2L PER NC. SOB W/EXERTION WHICH INCREASES OXYGEN NEEDS. OCCASIONAL NONPRODUCTIVE COUGH. COARSE BREATH SOUNDS. GEN WEAKNESS, NEEDS 1PA WITH TRANSFERS/AMBULATION. KAYDEN WAS D/C'D YEST, IS VOIDING W/O DIFFICULTY.
--- NOTE | 2020-11-09 09:30 | NUR ---
PER PT REQUEST CALL GIVEN TO PT'S SPOUSE KIM. DISCUSSED PT'S SITUATION AND GAVE AN UPDATE ON PT GOING HOME. PER PT'S SPOUSE THEY HAVE A LOT OF HELP AT HOME AND PT CAN HAVE 24/7 CARE THERE AND THAT IS WHERE THEY WOULD LIKE HER TO BE IF POSSIBLE. INFORMED HIM I LET HER INSPECTOR CON[employer] KNOW AND THEY ARE CURRENTLY WORKING ON THAT.
--- NOTE | 2020-11-09 18:23 | NUR ---
CALL TO KIM CALL TO KIM PT'S PER PT'S REQUEST. INFORMED HIM OF THE DISCUSSION WITH DR. BADILLO AND PHYSICAL THERAPY AND THE NEED TO KEEP PT FOR 1-2 MORE DAYS TO CONTINUE TO BUILD HER STRENGTH. PT'S AGREED AND WAS THANKFUL FOR THE CALL.
--- NOTE | 2020-11-09 18:38 | NUR ---
SHIFT SUMMARY PT ADMITTED FOR RESPIRATORY FAILURE DUE TO COVID-19 PNEUMONIA. PT IS CURRENTLY ON 2 L NC AND O2 SATS ARE MAINTAINING AT HIGH 90'S. PT WORKED WITH PHYSICAL THERAPY TODAY AND TOLERATED WELL. PT IS INDEPENDENT IN ROOM. DENIES N/V OR PAIN. TOLERATING FOOD AND FLUIDS WELL. I SPOKE WITH PT'S , KIM, PER PT'S REQUEST X2 TODAY TO KEEP HIM INFORMED AND HE AGREES WITH THE PLAN. PER PHYSICAL THERAPY AND DR. BADILLO, WILL CONTINUE TO HAVE PT WORK WITH PHYSICAL THERAPY UNTIL PT CAN GET STRONGER TO GO HOME WITH HOME HEALTH INSTEAD OF SNF PER PT'S REQUEST TO NOT GO TO SNF.
[2020-11-10 05:49] LABS: BASOPHILS ABSOLUTE AUTO 0.02 K/mm3 (0.00-0.23); BASOPHILS PERCENT AUTO 0 % (0-2); EOSINOPHILS ABSOLUTE AUTO 0.06 K/mm3 (0.00-0.68); EOSINOPHILS PERCENT AUTO 0 % (0-6); Hematocrit 36.2 % (33.0-51.0); Hemoglobin 12.2 g/dL (11.5-16.0); IMMATURE GRAN ABSOLUTE AUTO 0.14 K/mm3 (0.00-0.10); IMMATURE GRAN PERCENT AUTO 1 % (0-1); LYMPHOCYTES ABSOLUTE AUTO 2.68 K/mm3 (0.84-5.20); LYMPHOCYTES PERCENT AUTO 16 % (21-46); MONOCYTES ABSOLUTE AUTO 0.88 K/mm3 (0.16-1.47); MONOCYTES PERCENT AUTO 5 % (4-13); Mean Corpuscular HGB 31.3 pg (26.0-34.0); Mean Corpuscular HGB Conc 33.7 g/dL (31.5-36.5); Mean Corpuscular Volume 93 fL (80-100); Mean Platelet Volume 9.5 fL (9.1-12.4); NEUTROPHILS ABSOLUTE AUTO 13.12 K/mm3 (1.96-9.15); NEUTROPHILS PERCENT AUTO 78 % (41-73); Platelet Count 538 K/mm3 (150-400); RDW Coefficient Variation 12.9 % (11.7-14.2); RDW Standard Deviation 43.9 fL (35.1-46.3)
[2020-11-10 06:13] LABS: Anion Gap 5 mmol/L (6-16); Blood Urea Nitrogen 20 mg/dL (8-24); Bun/Creatinine Ratio 37.4 (12.0-20.0); CO2, Blood 26 mmol/L (21-32); Calcium, Blood 9.2 mg/dL (8.5-10.1); Chloride, Blood 102 mmol/L (98-108); Creatinine, Blood 0.54 mg/dL (0.40-1.00); Glomerular Filtration Rate >60 (60-); Glucose, Blood 98 mg/dL (70-99); Potassium, Blood 3.8 mmol/L (3.5-5.5); Sodium, Blood 133 mmol/L (136-145)
--- NOTE | 2020-11-10 06:51 | NUR ---
PT IS A/OX3. SHE IS ABLE TO MAKE HER NEEDS KNOWN. PLEASANT AND COOPERATIVE WITH STAFF AND HER CARE. NO EVENTS DURING THE NIGHT. WAS ADMITTED FOR ACUTE RESP FX R/T COVID-19. WAS IN ICU/INTUBATED X13 DAYS. NOW ON MED-SURG UNIT AND DOING MUCH BETTER. HAS HOARSE VOICE, WHISPERS. DENIES SORE THROAT. HAS NON-PRODUCTIVE COUGH. OXYGEN AT 2L PER NC. DOES GET SOB AND DESATS W/EXERTION. COARSE BS, BILAT. WORKING W/THERAPY. VERY WEAK [facility]. PT WANTS TO D/C HOME W/HOMEHEALTH, SHE DOES NOT WANT TO GO TO SNF. 1PA MAX ASSIST W/PIVOT TRANSFERS FROM BED TO [facility]. VOIDS W/O DIFFICULTY. DENIES N/V. ABD SOFT, NON-TENDER. FIORELLA BID. BT'S POS. RUE TRIPLE LUMEN PICC PATENT, SL. TOLERATING MECH SOFT DIET WELL. TAKES MEDS 1:1.
--- NOTE | 2020-11-10 17:16 | NUR ---
SHIFT SUMMARY PT ADMITTED DUE TO COVID PNEUMONIA AND PREVIOUS INTUBATION. PT IS A&O X4 AND VERY PLEASANT. SHE IS CURRENTLY ON 2L NC AND MAINTAINING O2 SAT IN HIGH 90'S. SHE HAS BEEN UP IN HER CHAIR MOST OF THE DAY. SHE WORKED WITH OT AND PHYSICAL THERAPY TODAY AND TOLERATED BOTH WELL, SHOWING CONTINUED IMPROVEMENT. PT DENIES N/V OR PAIN. TOLERATING FOOD AND FLUIDS WELL AND WAS ADVANCED BY SPEECH THERAPY TO A REGULAR DIET. SPEECH THERAPY DID RECOMMEND VOCAL REST AND A OUTSIDE REFERRAL TO ENT WHEN SHE DISCHARGES. PT WAS GIVEN A PEN AND PAD TO USE TO ALLOW VOCAL REST. PT IS A 1 PERSON ASSIST TO THE BATHROOM WITH FWW AND GAIT BELT. PLAN IS TO SEND PT HOME TOMORROW.
--- NOTE | 2020-11-11 05:34 | NUR ---
PT IS A/OX3. ABLE TO MAKE HER NEEDS KNOWN. NO EVENTS DURING THE NIGHT. WHISPERS, BUT DENIES ST. ON VOICE REST. BREATH SOUNDS COARSE. OXYGEN AT 2L PER NC. HAS NON-PRODUCTIVE COUGH. SOB AND DE-SATS W/EXERTION. RUE TRIPLE LUMEN PIC PATENT, DRSD CDI. TOLERATING REG DIET WELL. TAKES MEDS WHOLE AND 1 AT A TIME. VOIDS W/O DIFFICULTY, USES BSC. DENIES N/V. BT POS. 1PA W/FWW FOR TRANSFERS/AMBULATION.
[2020-11-11] MEDS ORDERED: Acetaminophen325 M1 PO (14:56)
[2020-11-11] MEDS ORDERED: ALBU2.5V5 INH (15:00)
[2020-11-11] MEDS ORDERED: DEXA2 PO (15:03)
[2020-11-11] MEDS ORDERED: FAMO40 PO (15:05)
[2020-11-11] MEDS ORDERED: HYDCHL25 PO (15:06)
[2020-11-11] MEDS ORDERED: POTA10T PO (15:08)
[2020-11-11] MEDS ORDERED: MULVITA PO (15:09)
[2020-11-11] MEDS ORDERED: TIOT18 INH (15:12)
[2020-11-11] MEDS ORDERED: VISBIOME 112.51 EACH PO (15:16)
[2020-11-11] MEDS ORDERED: VORI200 PO (15:17)
--- NOTE | 2020-11-11 16:24 | NUR ---
DISHCARGE PATIENT DISCHARGED IN STABLE CONDITION HOME. PICC LINE REMOVED BY MOLDER [employer] SP[employer]. PATIENT TOLERATED WELL. DISCHARGE INSTRUCTIONS GIVEN, PATIENT VERBALIZED UNDERSTANDING OF INSTRUCTIONS. PATIENT TAKEN DOWN TO FRONT LOBBY VIA WHEELCHAIR WITH ALL PACKED BELONGINGS
== END 2020-11-11 16:41 | disposition home health service (06) | DRG 207 ==
LOC: ER 10:20 → ERHOLD 12:34 → MEDS 12:34 → SURS 12:34 → ICUE 12:34 → MEDS 16:53 → PCU 10-23 14:45 → ICUE 10-24 11:34 → SURS 11-06 16:51
PROVIDERS: Emergency Medicine; Family Medicine; Internal Medicine; Internal Medicine Critical Care Medicine; Nurse Practitioner Acute Care; Student in an Organized Health Care Education/Training Program; ADMIT Family Medicine
PROC: 5A09357 Assistance with Respiratory Ventilation, Less than 24 Consecutive Hours, Continuous Positive Airway Pressure (ICD-10-PCS; principal; 2020-10-22)
PROC: 02HV33Z Insertion of Infusion Device into Superior Vena Cava, Percutaneous Approach (ICD-10-PCS; 2020-10-22)
PROC: XW033E5 Introduction of Remdesivir Anti-infective into Peripheral Vein, Percutaneous Approach, New Technology Group 5 (ICD-10-PCS; 2020-10-22)
PROC: 8E0ZXY6 Isolation (ICD-10-PCS; 2020-10-22)
PROC: 3E0333Z Introduction of Anti-inflammatory into Peripheral Vein, Percutaneous Approach (ICD-10-PCS; 2020-10-23)
PROC: 5A1955Z Respiratory Ventilation, Greater than 96 Consecutive Hours (ICD-10-PCS; 2020-10-24)
PROC: 0BH18EZ Insertion of Endotracheal Airway into Trachea, Via Natural or Artificial Opening Endoscopic (ICD-10-PCS; 2020-10-24)
PROC: 0W9930Z Drainage of Right Pleural Cavity with Drainage Device, Percutaneous Approach (ICD-10-PCS; 2020-10-24)
PROC: 3E033XZ Introduction of Vasopressor into Peripheral Vein, Percutaneous Approach (ICD-10-PCS; 2020-10-26)
DX: U07.1 COVID-19 (principal); J12.82 Pneumonia due to coronavirus disease 2019; J96.01 Acute respiratory failure with hypoxia; B44.0 Invasive pulmonary aspergillosis; J93.9 Pneumothorax, unspecified; N39.0 Urinary tract infection, site not specified; D72.829 Elevated white blood cell count, unspecified; T38.0X5A Adverse effect of glucocorticoids and synthetic analogues, initial encounter; J98.2 Interstitial emphysema; R73.9 Hyperglycemia, unspecified; E87.6 Hypokalemia; B95.2 Enterococcus as the cause of diseases classified elsewhere; J45.909 Unspecified asthma, uncomplicated; E66.9 Obesity, unspecified; Z68.31 Body mass index [BMI] 31.0-31.9, adult; R49.1 Aphonia; I10 Essential (primary) hypertension; R79.89 Other specified abnormal findings of blood chemistry; E03.9 Hypothyroidism, unspecified; Z79.899 Other long term (current) drug therapy; Z91.018 Allergy to other foods; Z78.1 Physical restraint status
CPT/HCPCS: 31500; 36415; 36600; 51702; 71045; 71260; 80048; 80053; 80069; 80076; 81001; 82728; 82803; 82947; 83615; 83735; 84100; 84145; 85025; 86003; 87070; 87077; 87086; 87106; 87186; 87205; 87305; 92526; 92610; 93005; 93010; 94002; 94003; 94640; 94660; 94664; 94667; 94760; 94761; 94762; 96365; 97110; 97116; 97162; 97167; 97530; 97535; 99285-25; A9270; C9113; J0290; J0330; J0360; J1100; J1650; J1815; J1940; J2060; J2704; J2930; J3010; J3465; J3480; J7040; J7050; J7060; J7120; Q9967

== ENCOUNTER 2021-10-12 13:03 | Day surgery (SDC) | payer BC ==
[~2021-10-12] VITALS: Ht 160 cm; Wt 70.3 kg
[~2021-10-12 13:03] MED LIST: ALBU2.5V5 INH; AMLO5 PO; Acetaminophen325 M1 PO; DEXA2 PO; EUTHYROX50 MCG PO; FAMO40 PO; HYDCHL25 PO; LOSA50 PO; MULVITA PO; POTA10T PO; TIOT18 INH; VISBIOME 112.51 EACH PO; VORI200 PO
== END 2021-10-12 15:11 | disposition home or self-care (01) ==
LOC: ORSCSDS 13:03
PROVIDERS: Surgery
PROC: 0DBP8ZX Excision of Rectum, Via Natural or Artificial Opening Endoscopic, Diagnostic (ICD-10-PCS; principal; 2021-10-12 14:15)
PROC: 0DBN8ZX Excision of Sigmoid Colon, Via Natural or Artificial Opening Endoscopic, Diagnostic (ICD-10-PCS; principal; 2021-10-12 14:15)
DX: Z12.11 Encounter for screening for malignant neoplasm of colon (principal); K63.5 Polyp of colon; K62.1 Rectal polyp; Z86.16 Personal history of COVID-19; J45.909 Unspecified asthma, uncomplicated; I10 Essential (primary) hypertension; E03.9 Hypothyroidism, unspecified; M10.9 Gout, unspecified; Z79.51 Long term (current) use of inhaled steroids; Z79.899 Other long term (current) drug therapy
CPT/HCPCS: 88305; J2704; J7120

== ENCOUNTER → 2021-12-29 | Outpatient (CLI) | payer BC | END | disposition home or self-care (01) | LOC: PLD 11:12 → LAB SHORT 11:12 | DX: L72.11 Pilar cyst (principal) | CPT/HCPCS: 88304 ==

== ENCOUNTER 2024-03-08 07:35 | Day surgery (SDC) | payer BC ==
[~2024-03-08 07:35] MED LIST changes: -ALBU2.5V5 INH; +ALBU90OI INH; +ALLO300 PO; +Crestor40 MG PO; +LEVSOD100 PO; +OLME20 PO
== END 2024-03-08 23:00 | disposition home or self-care (01) ==
LOC: MOI US 07:35
DX: C50.412 Malignant neoplasm of upper-outer quadrant of left female breast (principal)
CPT/HCPCS: 19285; 77065; A4648

== ENCOUNTER 2024-03-13 08:08 | Day surgery (SDC) | payer BC ==
[2024-03-13] VITALS (9 sets, daily range): BP systolic 114–133; BP diastolic 78–88
[~2024-03-13] VITALS: Ht 160 cm; Wt 79.2 kg
[2024-03-13] MEDS ORDERED: Lactated Ringer's 1,000 ML IV SCH (09:10)
[2024-03-13] MEDS ORDERED: CeFAZolin Sodium 2,000 MG in NS 100 ML IV SCH (09:10)
--- NOTE | 2024-03-13 09:38 | NUR ---
Ambulatory in Day Surgery. History, Chart, Medications and Allergies reviewed before start of procedure. Lungs clear T/O to Auscultation. Patient confirms NPO status and agrees with scheduled surgery. Pre-Op teaching done. Pt verbalizes understanding. Patient States Post-Procedure ride home has been arranged. PT BELONGINGS PLACED UNDERNEATH [facility] FOR SAFEKEEPING.
[2024-03-13] MEDS ORDERED: Midazolam HCl 1MG / ML 2ML Vial IV ONE (11:30)
[2024-03-13] MEDS ORDERED: Methylene Blue 1% 100 MG/10 ML VIAL ONE (11:31)
[2024-03-13] MEDS ORDERED: Bupivacaine 0.5% HCl 5 MG/ML 30MLVIAL ONE (11:32)
[2024-03-13] MEDS ORDERED: propofoL 20 ML IV ONE (12:11)
[2024-03-13] MEDS ORDERED: FentaNYL Citrate 50 MCG/ML 2 ML Injection ONE ×2 (12:11→12:24)
[2024-03-13] MEDS ORDERED: Phenylephrine HCl 10mg/ml 1 ml Vial ONE (12:29)
[2024-03-13] MEDS ORDERED: HYDROmorphone HCl/Pf 1MG SYR ONE ×2 (12:56→13:30)
[2024-03-13] MEDS ORDERED: Ondansetron HCl 2 MG / ML 2ML Vial ONE (12:57)
[2024-03-13] MEDS ORDERED: Ketorolac Tromethamine 30mg Vial ONE (12:57)
[2024-03-13] MEDS ORDERED: Dexamethasone Sod Phos 10 MG/ML 1ML VIAL ONE (12:57)
[2024-03-13] MEDS ORDERED: Bupivacaine 0.5% Inj 10 ML Vial ONE (13:05)
[2024-03-13] MEDS ORDERED: HYDROcodone 5-APAP 325 TAB PO PRN (14:15)
--- NOTE | 2024-03-13 14:59 | NUR ---
DISCHARGE PT A&OX4/VSS/RA/TALKING/EYES OPEN, PAIN TREATED WITH NORCO 5MG PO, DENIES NAUSEA/TOLERATING PO H20, LBR GAUZE/STERISTRIPS CDI/BINDER ON, DC INS PROVIDED, PT REP UNDERSTANDING THOSE INSTRUCTIONS, LEFT VIA WC WITH DC INS TO GO HOME WITH MOM.
== END 2024-03-13 14:58 | disposition home or self-care (01) ==
LOC: NM 08:08 → ORSCMMR 08:08 → NM 08:30
PROVIDERS: Surgery
PROC: 07B60ZX Excision of Left Axillary Lymphatic, Open Approach, Diagnostic (ICD-10-PCS; principal; 2024-03-13 10:30)
PROC: 0HBU0ZZ Excision of Left Breast, Open Approach (ICD-10-PCS; principal; 2024-03-13 10:30)
DX: C50.412 Malignant neoplasm of upper-outer quadrant of left female breast (principal); D36.0 Benign neoplasm of lymph nodes; Z17.0 Estrogen receptor positive status [ER+]; Z17.21 Progesterone receptor positive status; Z17.32 Human epidermal growth factor receptor 2 negative status; I10 Essential (primary) hypertension; J45.909 Unspecified asthma, uncomplicated; G47.33 Obstructive sleep apnea (adult) (pediatric); Z79.899 Other long term (current) drug therapy; E78.5 Hyperlipidemia, unspecified; E03.9 Hypothyroidism, unspecified; Z86.16 Personal history of COVID-19
CPT/HCPCS: 38792; 88307; 88342; A9270; A9520; J0690; J1100; J1171; J1885; J2250; J2371; J2405; J2704; J3010; J7120; Q9968

== ENCOUNTER → 2024-05-15 | Outpatient (CLI) | payer BC ==
[2024-05-20 10:44] LABS: HPV HIGH RISK BY TMA Not Detected; HPV SOURCE Cervical
== END ==
LOC: LAB SHORT 10:38 → LAB 10:38
PROVIDERS: Internal Medicine
DX: Z01.419 Encounter for gynecological examination (general) (routine) without abnormal findings (principal)
CPT/HCPCS: 87624; G0123